=== PATIENT | male | born 1950 | race Caucasian/White ===

== ENCOUNTER 2022-11-03 17:20 | Inpatient (IN) | payer MEDICARE, OTHER ==
[2022-11-03 18:19] LABS: Basophils # (A) 0.1 k/uL (0-0.2); Basophils % (A) 0 %; Eosinophils # (A) 0.1 k/uL (0-0.7); Eosinophils % (A) 0 %; HCT 42.6 % (39.0-53.0); HGB 13.7 gm/dL (13.0-17.5); Lymphocytes # (A) 1.3 k/uL (1.0-4.8); Lymphocytes % (A) 6 %; MCH 29.7 pg (25.0-35.0); MCHC 32.1 g/dL (31.0-37.0); MCV 92.3 fL (80.0-100.0); Mean Platelet Volume 7.6; Monocytes # (A) 0.8 k/uL (0-1.0); Monocytes % (A) 4 %; Neutrophils # (A) 18.4 k/uL (1.3-7.7); Neutrophils % (A) 88 %; Platelet Count 434 k/uL (150-450); RBC 4.61 m/uL (4.30-5.90); RDW 12.9 % (11.5-15.5); WBC 20.9 k/uL (3.8-10.6)
[2022-11-03 18:30] LABS: Albumin 2.9 g/dL (3.5-5.0); Calcium 8.5 mg/dL (8.4-10.2); Magnesium 2.2 mg/dL (1.6-2.3); Potassium 4.3 mmol/L (3.5-5.1); Total Bilirubin 3.9 mg/dL (0.2-1.3); Total Protein 6.7 g/dL (6.3-8.2)
[2022-11-03 18:34] LABS: INR 1.2 (<1.2); Prothrombin Time 12.3 sec (9.0-12.0)
[2022-11-03] MEDS ORDERED: ACETAMINOPHEN TAB 500 MG TAB PO STA (18:49)
[2022-11-03] MEDS ORDERED: IBUPROFEN 600 MG TAB PO STA (19:21)
[2022-11-03] MEDS ORDERED: SODIUM CHLORIDE 0.9% 500 ML 500 ML IV ONE (19:22)
--- NOTE | 2022-11-03 19:41 | CT ---
EXAMINATION TYPE: CT chest angio for PE CT DLP: 286 mGycm, Automated exposure control for dose reduction was used. DATE OF EXAM: 11/03/2022 7:26 PM COMPARISON: None CLINICAL INDICATION:Male, 71 years old with history of elevated d-dimer; cough, elevated d-dimer TECHNIQUE/CONTRAST: CTA scan of the thorax is performed with IV Contrast, patient injected with 100 mL of Isovue 300, pul monary embolism protocol. MIP images are created and reviewed. FINDINGS: Pulmonary Artery: There is no evidence for a filling defect within the pulmonary vasculature to sugge st acute pulmonary embolism. The pulmonary artery is of normal size. Lungs/Pleura: Trace right pleural effusion. Patchy consolidation throughout the right upper and middl e lobes with regions of cavitation. Largest cavitation measures up to 3 cm. Mild centrilobular emphys ematous changes. Airway: Large airways are patent. Heart: Heart is within normal limits for size. No pericardial effusion. Vasculature: No evidence of aortic aneurysm. Mediastinum: Few prominent right hilar lymph nodes. Musculoskeletal: No acute osseous abnormalities Soft Tissues: Bilateral gynecomastia. Lower neck: No significant findings. Upper Abdomen: Please refer to dedicated CT abdomen pelvis of same day for findings. IMPRESSION: 1. No evidence of pulmonary embolism. 2. Patchy consolidation throughout the right upper and middle lobes with regions of cavitation likely representing pneumonia with small pulmonary abscesses. Continued follow-up is recommended. 3. Reactive right hilar lymphadenopathy likely secondary to #2. 4. Trace right pleural effusion. 5. Mild COPD changes.
--- NOTE | 2022-11-03 20:07 | CT ---
EXAMINATION TYPE: CT abdomen pelvis w con CT DLP: 970.8 mGycm, Automated exposure control for dose reduction was used. DATE OF EXAM: 11/03/2022 7:26 PM COMPARISON: None CLINICAL INDICATION:Male, 71 years old with history of elevated liver enzymes; weakness, nausea, vomi ting TECHNIQUE: Standard CT of the abdomen and pelvis following the administration of 100 cc of Isovue 3 00 IV contrast material. Coronal and sagittal reformats were performed. FINDINGS: LOWER CHEST: Please see dedicated CTA chest for findings ABDOMEN LIVER: A few subcentimeter hypoattenuating structures are demonstrated throughout the liver, which ar e too small to accurately characterize but statistically likely to represent simple hepatic cysts GALLBLADDER AND BILE DUCTS: Unremarkable. PANCREAS: Unremarkable. SPLEEN: Unremarkable. ADRENAL GLANDS: Unremarkable. KIDNEYS AND URETERS: No evidence of hydronephrosis or renal calculus. The kidneys enhance symmetrical ly. Contrast is demonstrated within both collecting systems on the delayed phase. PELVIS BLADDER: Unremarkable REPRODUCTIVE: Coarse calcifications of the prostate gland are identified. ABDOMEN & PELVIS STOMACH AND BOWEL: Small hiatal hernia, duodenum is unremarkable. The appendix is within normal limit s. No evidence of bowel obstruction. PERITONEUM: No evidence of pneumoperitoneum or free fluid. VASCULATURE: Infrarenal abdominal aortic fusiform ectasia measuring up to 2.9 cm. Moderate atheroscle rotic calcification of the aorta and its branches. MUSCULOSKELETAL: No acute osseous abnormalities. Mild multilevel degenerative disc disease. Prominent Schmorl's node involving the superior endplate of L2 vertebral body. LYMPH NODES: No gross evidence for lymphadenopathy. SOFT TISSUE/ABDOMINAL WALL: Unremarkable IMPRESSION: 1. No acute abdominal/pelvic process. 2. Infrarenal abdominal aortic ectasia measuring up to 2.9 cm.
--- NOTE | 2022-11-03 20:38 | ED ---
Chest Pain HPI - General Chief Complaint: Chest Pain Stated Complaint: Chest/back Pain Time Seen by Provider: 11/03/22 17:30 Source: patient Mode of arrival: wheelchair Limitations: physical limitation - History of Present Illness Initial Comments: 71-year-old male with past history of hypertension presents emergency department with fever, productive cough and shortness of breath. Daughter is at bedside and helps provide history. States that he has had symptoms for the past several weeks and is not getting any better. Denies any fevers however the patient does have one upon evaluation here. He denies hemoptysis. Admits to smoking. Reports to right-sided chest pain especially with inspiration. He denies cardiac history. No nausea or vomiting. No diarrhea. No other alleviating, precipitating or modifying factors - Related Data Home Medications Medication Instructions Recorded Confirmed amLODIPine [Norvasc] 5 mg PO BID 11/03/22 11/03/22 Allergies Allergy/AdvReac Type Severity Reaction Status Date / Time No Known Allergies Allergy Verified 11/04/22 10:41 Review of Systems ROS Statement: Those systems with pertinent positive or pertinent negative responses have been documented in the HPI. ROS Other: All systems not noted in ROS Statement are negative. Past Medical History Past Medical History: Hypertension History of Any Multi-Drug Resistant Organisms: None Reported Past Surgical History: No Surgical Hx Reported Past Psychological History: No Psychological Hx Reported Smoking Status: Current every day smoker Past Alcohol Use History: Rare Past Drug Use History: None Reported General Exam Limitations: physical limitation General appearance: alert, in no apparent distress Head exam: Present: atraumatic, normocephalic, normal inspection Eye exam: Present: normal appearance, PERRL, EOMI. Absent: scleral icterus, conjunctival injection, periorbital swelling ENT exam: Present: normal exam, mucous membranes moist Neck exam: Present: normal inspection. Absent: tenderness, meningismus, lymphadenopathy Respiratory exam: Present: rales, decreased breath sounds. Absent: respiratory distress, rhonchi, stridor Cardiovascular Exam: Present: normal rhythm, tachycardia, normal heart sounds. Absent: systolic murmur, diastolic murmur, rubs, gallop, clicks GI/Abdominal exam: Present: soft, normal bowel sounds. Absent: distended, tenderness, guarding, rebound, rigid Extremities exam: Present: normal inspection, full ROM, normal capillary refill. Absent: tenderness, pedal edema, joint swelling, calf tenderness Back exam: Present: normal inspection Neurological exam: Present: alert, oriented X3, CN II-XII intact Psychiatric exam: Present: normal affect, normal mood Skin exam: Present: warm, dry, intact, normal color. Absent: rash Course Vital Signs 11/03/22 11/03/22 11/03/22 17:26 18:18 18:37 Temperature 98.5 F 100.1 F H Pulse Rate 111 H 105 H Pulse Rate [ Pulse Oximetery ] Respiratory 22 18 20 Rate Blood Pressure 110/70 125/86 Blood Pressure [Right Arm] O2 Sat by Pulse 95 100 Oximetry 11/03/22 11/03/22 11/03/22 19:42 20:48 21:23 Temperature 100.2 F H 98.7 F 99 F Pulse Rate 95 92 Pulse Rate [ Pulse Oximetery ] Respiratory 18 18 Rate Blood Pressure 101/59 Blood Pressure [Right Arm] O2 Sat by Pulse 96 Oximetry 11/04/22 11/04/22 01:00 02:10 Temperature 99 F 98.8 F Pulse Rate 92 Pulse Rate [ 98 Pulse Oximetery ] Respiratory 17 20 Rate Blood Pressure 108/77 Blood Pressure 106/65 [Right Arm] O2 Sat by Pulse 95 96 Oximetry Chest Pain MDM - MDM Was pt. sent in by a medical professional or institution ([facility], [facility], urgent care, hospital, or senior care...) When possible be specific @ -No Did you speak to anyone other than the patient for history (EMS, parent, family, police, friend...)? What history was obtained from this source @ -I spoke with the patient's daughter Did you review nursing and triage notes (agree or disagree)? Why? @ -I reviewed and agree with nursing and triage notes Were old charts reviewed (outside hosp., previous admission, EMS record, old EKG, old radiological studies, urgent care reports/EKG's, senior care records)? Report findings @ -No old charts were reviewed Differential Diagnosis (chest pain, altered mental status, abdominal pain women, abdominal pain men, vaginal bleeding, weakness, fever, dyspnea, syncope, headache, dizziness, GI bleed, back pain, seizure, CVA, palpatations, mental health, musculoskeletal)? @ -Differential Fever: Pneumonia, viral URI, endocarditis, myocarditis, pericarditis, otitis, sinusitis, peritonsillar Abscess, retropharyngeal Abscess, epiglottitis, peritonitis, appendicitis, Bryanna cystitis, diverticulitis, hepatitis, colitis, UTI, PID, TOA, pyelonephritis, prostatitis, epididymitis, meningitis, encephalitis, pulmonary embolism, CVA, thyroid storm, pancreatitis, adrenal crisis, cavernous sinus thrombosis, this is not meant to be an all-inclusive list. EKG interpreted by me (3pts min.). @ -EKG interpreted by me demonstrates sinus tachycardia with a rate of 118. SC interval 139. QRS 122. QTC of 379. No acute ST segment elevations or depressions X-rays interpreted by me (1pt min.). @ -None done CT interpreted by me (1pt min.). @ -CT is interpreted by me and demonstrates a right lung abscess U/S interpreted by me (1pt. min.). @ -None done What testing was considered but not performed or refused? (CT, X-rays, U/S, labs)? Why? @ -None What meds were considered but not given or refused? Why? @ -None Did you discuss the management of the patient with other professionals (professionals i.e. DrRadha, PA, GM, lab, RT, psych nurse, social human services assistants, proof sorter, teacher, security officer, home health care case manager)? Give summary @ -Spoke with Dr. Prajapati who will admit the patient Was smoking cessation discussed for >3mins.? @ -Yes Was critical care preformed (if so, how long)? @ -No Were there social determinants of health that impacted care today? How? (Homelessness, low income, unemployed, alcoholism, drug addiction, transportation, low edu. Level, literacy, decrease access to med. care, half-way, rehab)? @ -No Was there de-escalation of care discussed even if they declined (Discuss DNR or withdrawal of care, Hospice)? DNR status @ -No What co-morbidities impacted this encounter? (DM, HTN, Smoking, COPD, CAD, Cancer, CVA, ARF, Chemo, Hep., AIDS, mental health diagnosis, sleep apnea, morbid obesity)? @ -Tobacco abuse Was patient admitted / discharged? Hospital course, mention meds given and route, prescriptions, significant lab abnormalities, going to OR and other pertinent info. @ -@ -Upon arrival patient was placed into room 2. Her history and physical symptoms performed. I did order Tylenol for fever control. Laboratory studies are conducted and reviewed. I blood cell count is 20.9. D-dimer 1.01. Liver enzymes are elevated and therefore I did discontinue the Tylenol and gave the patient Motrin. CT of the patient's chest is performed which demonstrates right-sided pneumonia with abscess formation. Blood cultures obtained and the patient initiated on antibiotics. Recommended admission for which the patient was agreeable. Spoke with Dr. Prajapati who agreed to admit the patient Undiagnosed new problem with uncertain prognosis? @ -Yes Drug Therapy requiring intensive monitoring for toxicity (Heparin, Nitro, Insulin, Cardizem)? @ -No Were any procedures done? @ -No Diagnosis/symptom? @ -Acute pyrexia, acute cough, right pulmonary abscess with pneumonia, acute leukocytosis Acute, or Chronic, or Acute on Chronic? @ -Acute Uncomplicated (without systemic symptoms) or Complicated (systemic symptoms)? @ -Complicated Side effects of treatment? @ -No Exacerbation, Progression, or Severe Exacerbation? @ -No Poses a threat to life or bodily function? How? (Chest pain, [place], [place], pneumonia, PE, COPD, DKA, ARF, appy, cholecystitis, CVA, Diverticulitis, Homicidal, Suicidal, threat to staff... and all critical care pts) @ -No Disposition Clinical Impression: Cough, Lung abscess, CAP (community acquired pneumonia), Fever, Leukocytosis Disposition: ADMITTED IP TO THIS [facility] Condition: Serious Is patient prescribed a controlled substance at d/c from ED?: No Time of Disposition: 20:48 Decision to Admit Reason: Admit from EC Decision Date: 11/03/22 Decision Time: 20:48
[2022-11-03] MEDS ORDERED: NALOXONE 0.4 MG/ML 1 ML VIAL IV PRN (20:48)
[2022-11-03] MEDS ORDERED: PIPERACILLIN-TAZOBACTAM 3.375 GM in SODIUM CHLORIDE 0.9% 100 ML IVPB STA (20:52)
[2022-11-03] MEDS ORDERED: PNEUMONIA PROTOCOL UTILIZED 1 EACH MISC PO PRN (20:52)
[2022-11-03] MEDS: SODIUM CHLORIDE 0.9% 1,000 ML IV SCH (21:15)
[2022-11-04] MEDS ORDERED: IPRATROPIUM-ALBUTEROL 3 ML NEB INHALATION PRN ×2 (01:25→05:22)
[2022-11-04] MEDS: CLINDAMYCIN 600 MG/50 ML-D5W 600 MG in DEXTROSE/WATER 1 50ML.BAG IVPB SCH ×3 (01:40→16:15)
[2022-11-04] MEDS: SODIUM CHLORIDE 0.9% 1,000 ML IV SCH ×3 (02:10→19:52)
[2022-11-04] MEDS: PIPERACILLIN-TAZOBACTAM 3.375 GM in SODIUM CHLORIDE 0.9% 100 ML IVPB SCH ×3 (04:43→19:51)
--- NOTE | 2022-11-04 05:42 | P.CNPUL ---
History of Present Illness Consult date: 11/04/22 Requesting physician: Latrice Santana Reason for consult: pneumonia Chief complaint: Shortness of breath and cough for about 1 month History of present illness: I am seeing this patient in new consultation today 11/04/2022 for right upper and middle lobe cavitating pneumonia. Patient is a 71-year-old white male with known past medical history of hypertension. He is also a 2 pack per day smoker. On my interview, the patient states that his daughter normally handles all this, and to ask her. He is unsure of his own medical history, but denies any history of lung disease. The patient has been reportedly experiencing shortness of breath with a productive cough and yellow sputum production for approximately one month. He does have associated right-sided chest pain especially with inspiration and cough. He has been more fatigued lately. He denies hemoptysis or recent unintentional weight loss. He is currently sitting up in bed, on room air, in no acute distress. Chest CTA on arrival shows no evidence of pulmonary embolism. It does show patchy consolidation throughout the right upper and middle lobes with regions of cavitation likely representing pneumonia with small pulmonary abscesses. There was also reactive right hilar lymph, a trace right pleural effusion, and mild COPD-like changes. CT of the abdomen pelvis showed no acute abdominal process, there was an infrarenal abdominal aortic aneurysm measuring up to 2.9 cm. CBC on arrival shows leukocytosis with a WBC count of 21, hemoglobin 13.7, hematocrit 42.6, platelets 434. CMP shows a sodium 133, potassium 4.3, chloride 97, serum CO2 23, BUN 21, creatinine 1.02, glucose 124. LFTs were elevated including an AST of 256, ALT 139, ALP of 207. Troponin negative 1. NT proBNP level. Negative for influenza, RSV, COVID-19. Patient is being empirically covered on a combination of Zosyn and clindamycin. He is febrile with a T-max of 100.2F. Vital signs are stable. Review of Systems REVIEW OF SYSTEMS: CONSTITUTIONAL: Denies any recent significant weight loss or weight gain. EYES: Denies change in vision. EARS, NOSE, MOUTH, THROAT: Denies headaches, denies sore throat. CARDIOVASCULAR: Denies radiating chest pain, palpitations or syncopal episodes. RESPIRATORY: See HPI GASTROINTESTINAL: Denies change in appetite, abdominal pain, nausea and vomiting, or diarrhea GENITOURINARY: Denies hematuria, denies infections. MUSKULOSKELETAL: Denies pain, denies swelling. INTEGUMENTARY: Denies rash, denies eczema. NEUROLOGICAL: Denies recent memory loss, no recent seizure activity. PSYCHIATRIC: Denies anxiety, denies depression. HEMATOLOGIC/LYMPHATIC: Denies anemia, denies enlarged lymph node Past Medical History Past Medical History: Hypertension History of Any Multi-Drug Resistant Organisms: None Reported Past Surgical History: No Surgical Hx Reported Past Anesthesia/Blood Transfusion Reactions: No Reported Reaction Past Psychological History: No Psychological Hx Reported Smoking Status: Current every day smoker Past Alcohol Use History: Rare Past Drug Use History: None Reported Medications and Allergies Home Medications Medication Instructions Recorded Confirmed Type amLODIPine [Norvasc] 5 mg PO BID 11/03/22 11/03/22 History Allergies Allergy/AdvReac Type Severity Reaction Status Date / Time No Known Allergies Allergy Verified 11/04/22 10:41 Physical Exam Vitals: Vital Signs Temp Pulse Pulse Resp BP BP Pulse Ox 11/04/22 02:10 98.8 F 98 20 106/65 96 11/04/22 01:00 99 F 92 17 108/77 95 11/03/22 21:23 99 F 92 18 101/59 96 11/03/22 20:48 98.7 F 11/03/22 19:42 100.2 F H 95 18 11/03/22 18:37 100.1 F H 105 H 20 125/86 100 11/03/22 18:18 18 11/03/22 17:26 98.5 F 111 H 22 110/70 95 Intake and Output 11/03/22 11/03/22 11/04/22 14:59 22:59 06:59 Other: Voiding Method Toilet Urinal Weight 77.111 kg 77.111 kg GENERAL EXAM: Alert, 71-year-old white male , comfortable in no apparent distress. HEAD: Normocephalic and atraumatic EYES: Normal reaction of pupils, equal size. NOSE: Clear with pink turbinates. THROAT: No erythema or exudates. NECK: No masses, no JVD. CHEST: No chest wall deformity. LUNGS: Diminished right upper lobe lung sounds. No crackles, wheeze, rhonchi or dullness. On room air. No conversational dyspnea or accessory muscle use.. CVS: S1 and S2 normal with no audible murmur, regular rhythm. No extra heart sounds ABDOMEN: No hepatosplenomegaly, active bowel sounds, no guarding or rigidity. SPINE: No scoliosis or deformity SKIN: No rashes CENTRAL NERVOUS SYSTEM: No focal deficits, tone is normal in all 4 extremities. EXTREMITIES: There is no peripheral edema, clubbing, or cyanosis. Peripheral pulses are intact. Results - Laboratory Findings CBC and BMP: 11/04/22 06:02 11/04/22 06:02 PT/INR, D-dimer PT 12.3 sec (9.0-12.0) H 11/03/22 17:35 INR 1.2 (<1.2) H 11/03/22 17:35 D-Dimer 1.01 mg/L FEU (<0.60) H 11/03/22 17:35 Abnormal lab findings: Abnormal Labs 11/03/22 11/03/22 11/03/22 17:35 18:02 18:08 WBC 20.9 H Neutrophils # 18.4 H PT 12.3 H INR 1.2 H D-Dimer 1.01 H Sodium 133 L Chloride 97 L BUN 21 H Glucose 124 H Total Bilirubin 3.9 H AST 256 H ALT 139 H Alkaline Phosphatase 207 H Albumin 2.9 L - Diagnostic Findings CT scan - chest: image reviewed Assessment and Plan Assessment: Right upper lobe community acquired cavitating pneumonia. Chest CT shows patchy consolidation throughout the right upper and middle lobes with regions of cavitation likely representing pneumonia with small pulmonary abscesses. Leukocytosis Suspected COPD, mild COPD-like changes were seen on chest CTA Infrarenal abdominal aortic aneurysm measuring up to 2.9 cm Hypertension Elevated LFTs, currently under evaluation Chronic nicotine dependence, current 2 pack per day smoker Plan: Patient's medications, labs, chest CTA were reviewed Continue empiric antibiotics in the form of Zosyn and clindamycin Patient may need diagnostic bronchoscopy to isolate organism blood cultures are pending sputum cultures ordered Add bronchodilators obtain ultrasound of liver Nicotine replacement offered Smoking cessation education performed We will continue to follow I have personally seen and examined the patient, performed the documentation and the assessment and plan as written. Number of minutes spent on the visit:20 Joint evaluation that was done along with the nurse practitioner. The patient has a very dense consolidation with cavitation in the right upper lobe. This is a new onset finding as the patient's previous CAT scan of the chest that was done approximately 4 months ago showed no evidence of any abnormalities in the right upper lobe area. I highly doubt this is malignancy. There is a extensive cavitating right upper lobe pneumonia. We'll continue the Zosyn and and clindamycin and and also Zyvox for any potential staphylococcal infection. We'll consult infectious disease. We'll obtain a pro-calcitonin level. May need a bronchoscopy for microbial cultures and analysis. He was not interested in the procedure. We'll continue with antibiotic coverage for now. Time with Patient: Greater than 30
[2022-11-04 06:16] LABS: Basophils # (A) 0.1 k/uL (0-0.2); Basophils % (A) 0 %; Eosinophils # (A) 0.2 k/uL (0-0.7); Eosinophils % (A) 1 %; HCT 37.8 % (39.0-53.0); Hypochromasia Slight; Lymphocytes % (A) 4 %; MCH 29.9 pg (25.0-35.0); MCHC 31.7 g/dL (31.0-37.0); MCV 94.1 fL (80.0-100.0); Mean Platelet Volume 7.3; Monocytes # (A) 0.8 k/uL (0-1.0); Monocytes % (A) 3 %; Neutrophils # (A) 21.3 k/uL (1.3-7.7); Neutrophils % (A) 91 %; Platelet Count 456 k/uL (150-450); RBC 4.02 m/uL (4.30-5.90); RDW 13.1 % (11.5-15.5); WBC 23.5 k/uL (3.8-10.6)
[2022-11-04 06:45] LABS: African American GFR (CKD) >90 (>60 ml/min/1.73 sqM); Anion Gap 11 mmol/L; Blood Urea Nitrogen 15 mg/dL (9-20); Calcium 7.8 mg/dL (8.4-10.2); Carbon Dioxide 21 mmol/L (22-30); Chloride 101 mmol/L (98-107); Glucose 91 mg/dL (74-99); Non-African American GFR(CKD) >90 (>60 ml/min/1.73 sqM); Sodium 133 mmol/L (137-145)
--- NOTE | 2022-11-04 07:14 | XR ---
EXAMINATION TYPE: XR chest 1V DATE OF EXAM: 11/04/2022 6:46 AM COMPARISON: CT 11/03/2022 TECHNIQUE: XR chest 1V Frontal view of the chest. CLINICAL INDICATION:Male, 71 years old with history of pneumonia; FINDINGS: Lungs/Pleura: Trace right pleural effusion. Airspace opacities throughout the right upper and middle lobes with regions of cavitation are appreciated on CT. Largest cavitation measures up to 3 cm. Mild centrilobular emphysematous changes. Pulmonary vascularity: Unremarkable. Heart/mediastinum: Cardiomediastinal silhouette is unremarkable. Musculoskeletal: No acute osseous pathology. IMPRESSION: Similar multifocal airspace opacities better appreciated on CT.
[2022-11-04] MEDS: NICOTINE 21MG/24HR PATCH TRANSDERM SCH (08:12)
--- NOTE | 2022-11-04 08:16 | US ---
EXAMINATION TYPE: US liver DATE OF EXAM: 11/04/2022 COMPARISON: CT 11/03/2022 CLINICAL INDICATION: Male, 71 years old with history of elevated LFTs; elevated labs, no pain per pat ient TECHNIQUE: Multiple sonographic images of the right upper quadrant are obtained. FINDINGS: EXAM MEASUREMENTS: Liver Length: 16.3 cm Gallbladder Wall: 0.2 cm CBD: 0.5 cm Right Kidney: 9.9 x 4.8 x 5.4 cm Pancreas: not seen due to bowel gas Liver: left lateral lobe anechoic cluster, probable cyst = 1.3 x 1.4 x 0.6cm Gallbladder: multiple echogenic areas along anterior wall with comet tail artifact, may represent ad enomyomatosis Evidence for sonographic Rodriguez's sign: no CBD: wnl Right Kidney: wnl IMPRESSION: 1. Gallbladder adenomyomatosis. 2. Left simple appearing hepatic cyst. 3. No evidence for acute process.
[2022-11-04] MEDS: IBUPROFEN 400 MG TAB PO PRN ×2 (08:42→19:51)
[2022-11-04] MEDS: IPRATROPIUM-ALBUTEROL 3 ML NEB INHALATION SCH ×4 (09:00→19:25)
[2022-11-04] MEDS ORDERED: SODIUM CHLORIDE 0.9% 500 ML 500 ML IV ONE (14:12)
[2022-11-04] MEDS ORDERED: LORazepam 1 MG TAB PO PRN ×3 (14:16)
--- NOTE | 2022-11-04 18:40 | P.HPIM ---
History of Present Illness H&P Date: 11/04/22 Chief Complaint: Cough fever debility Mr. Grace is a relatively new patient to my office have only seen him once this year he presented with shortness of breath cough for 1 month with ongoing fatigue and debility, he is a 16-year-old male past medical history of hypertension. 2 pack-a-day smoker. A daily beer drinker although he states he hasn't drank any alcohol for the last month and his smoking has diminished markedly because he cannot really. Patient experiencing started experiencing shortness of breath and cough approximately earlier in the month and started becoming progressively fatigued and more short of breath. Denies hemoptysis. Denies any recent weight loss is not in any acute distress the CAT scan shows [place] patchy consolidation throughout the right upper and middle lobes CT of the abdomen and pelvis showed no acute process there is a infrarenal abdominal aortic aneurysm measuring approximately 2.[address] A showed no evidence of PE patient demonstrated leukocytosis 21,000 hemoglobin is 13.7 crit grade 2.6 lites BUN/creatinine were fairly normal negative peripheral ENT negative influenza negative [place] and currently being covered empirically with Zosyn and Clinda max of 100.2 Review of Systems Constitutional: Reports anorexia, Reports fatigue, Reports fever, Reports weakness Ears, nose, mouth and throat: Reports as per HPI Cardiovascular: Reports shortness of breath Respiratory: Reports congestion, Reports cough, Reports cough with sputum, Reports excessive sputum Gastrointestinal: Reports as per HPI Genitourinary: Reports as per HPI Musculoskeletal: Reports as per HPI Integumentary: Reports as per HPI Neurological: Reports as per HPI Psychiatric: Reports as per HPI Past Medical History Past Medical History: Hypertension History of Any Multi-Drug Resistant Organisms: None Reported Past Surgical History: No Surgical Hx Reported Past Anesthesia/Blood Transfusion Reactions: No Reported Reaction Past Psychological History: No Psychological Hx Reported Smoking Status: Current every day smoker Past Alcohol Use History: Rare Past Drug Use History: None Reported Medications and Allergies Home Medications Medication Instructions Recorded Confirmed Type amLODIPine [Norvasc] 5 mg PO BID 11/03/22 11/03/22 History Allergies Allergy/AdvReac Type Severity Reaction Status Date / Time No Known Allergies Allergy Verified 11/04/22 10:41 Physical Exam Osteopathic Statement: *. No significant issues noted on an osteopathic structural exam other than those noted in the History and Physical/Consult. Vitals: Vital Signs Temp Pulse Pulse Resp BP BP Pulse Ox 11/04/22 15:00 97.4 F L 81 20 86/48 95 11/04/22 12:06 92 11/04/22 11:59 96 11/04/22 09:11 100 11/04/22 09:05 99 11/04/22 07:00 98.4 F 97 22 107/66 95 11/04/22 02:10 98.8 F 98 20 106/65 96 11/04/22 01:00 99 F 92 17 108/77 95 11/03/22 21:23 99 F 92 18 101/59 96 11/03/22 20:48 98.7 F 11/03/22 19:42 100.2 F H 95 18 11/03/22 18:37 100.1 F H 105 H 20 125/86 100 Intake and Output 11/04/22 11/04/22 11/04/22 06:59 14:59 22:59 Intake Total 118 Output Total 400 Balance -282 Intake: Oral 118 Output: Urine 400 Other: Voiding Method Toilet Toilet Urinal Urinal # Voids 1 Weight 77.111 kg General: [Patient awake, alert and oriented times 3. Patient in no acute distress.] Mildly cachectic HEENT: [PERRL. EOMI. No pharyngeal erythema or exudate.] Neck: [No adenopathy.] Cardiac: [Heart regular in rate and rhythm. No S3. No S4. No clicks, rubs. No murmur.] Lungs: Diminished breath sounds bilaterally mild consolidation right upper lobe Abdomen: [No mass. No organomegaly. Bowel sounds presnt and normoactive in all 4 quadrants.] Extremes: [No edema no cyanosis no claudication normal pulses] : [] Musculoskeletal: [No joint erythema, edema or tenderness.] Skin: [No rash.] Neurologic: [No lateralizing deficits. CN II - XII grossly intact.] Lymphatic: [No adenopathy.] Results CBC & Chem 7: 11/04/22 06:02 11/04/22 06:02 Labs: Abnormal Lab Results - Last 24 Hours (Table) 11/03/22 11/03/22 11/04/22 Range/Units 17:35 18:08 06:02 WBC 23.5 H (3.8-10.6) k/uL RBC 4.02 L (4.30-5.90) m/uL Hgb 12.0 L (13.0-17.5) gm/dL Hct 37.8 L (39.0-53.0) % Plt Count 456 H (150-450) k/uL Neutrophils # 21.3 H (1.3-7.7) k/uL PT 12.3 H (9.0-12.0) sec INR 1.2 H (<1.2) D-Dimer 1.01 H (<0.60) mg/L FEU Sodium 133 L (137-145) mmol/L Chloride 97 L (98-107) mmol/L Carbon Dioxide (22-30) mmol/L BUN 21 H (9-20) mg/dL Glucose 124 H (74-99) mg/dL Calcium (8.4-10.2) mg/dL Total Bilirubin 3.9 H (0.2-1.3) mg/dL AST 256 H (17-59) U/L ALT 139 H (4-49) U/L Alkaline Phosphatase 207 H (38-126) U/L Albumin 2.9 L (3.5-5.0) g/dL 11/04/22 Range/Units 06:02 WBC (3.8-10.6) k/uL RBC (4.30-5.90) m/uL Hgb (13.0-17.5) gm/dL Hct (39.0-53.0) % Plt Count (150-450) k/uL Neutrophils # (1.3-7.7) k/uL PT (9.0-12.0) sec INR (<1.2) D-Dimer (<0.60) mg/L FEU Sodium 133 L (137-145) mmol/L Chloride (98-107) mmol/L Carbon Dioxide 21 L (22-30) mmol/L BUN (9-20) mg/dL Glucose (74-99) mg/dL Calcium 7.8 L (8.4-10.2) mg/dL Total Bilirubin (0.2-1.3) mg/dL AST (17-59) U/L ALT (4-49) U/L Alkaline Phosphatase (38-126) U/L Albumin (3.5-5.0) g/dL Microbiology - Last 24 Hours (Table) 11/04/22 09:44 Sputum Culture - Preliminary Sputum 11/04/22 09:44 Legionella Culture - Preliminary Sputum Thrombosis Risk Factor Assmnt - DVT/VTE Prophylaxis DVT/VTE Prophylaxis: Pharmacologic Prophylaxis ordered - Choose All That Apply Any of the Below Risk Factors Present?: Yes Each Factor Represents 1 point: Obesity (BMI >25) Other Risk Factors: Yes Each Risk Factor Represents 2 Points: Age 61-74 years Other congenital or acquired thrombophilia - If yes, enter type in comment: No Thrombosis Risk Factor Assessment Total Risk Factor Score: 3 Thrombosis Risk Factor Assessment Level: Moderate Risk Assessment and Plan (1) CAP (community acquired pneumonia) Current Visit: Yes Status: Acute Code(s): J18.9 - PNEUMONIA, UNSPECIFIED ORGANISM SNOMED Code(s): 830062982 (2) Cough Current Visit: Yes Status: Acute Code(s): R05.9 - COUGH, UNSPECIFIED SNOMED Code(s): 08494598 (3) Fever Current Visit: Yes Status: Acute Code(s): R50.9 - FEVER, UNSPECIFIED SNOMED Code(s): 444785906 (4) Leukocytosis Current Visit: Yes Status: Acute Code(s): D72.829 - ELEVATED WHITE BLOOD CELL COUNT, UNSPECIFIED SNOMED Code(s): 978056449 (5) Lung abscess Current Visit: Yes Status: Acute Code(s): J85.2 - ABSCESS OF LUNG WITHOUT PNEUMONIA SNOMED Code(s): 90485494 Plan: Right upper lobe pneumonia possible abscess IV antibiotics Pulmonary consultation for Waiting on sputum cultures and blood cultures Time with Patient: Greater than 30
[2022-11-05] MEDS: CLINDAMYCIN 600 MG/50 ML-D5W 600 MG in DEXTROSE/WATER 1 50ML.BAG IVPB SCH ×4 (01:00→22:29)
[2022-11-05] MEDS: PIPERACILLIN-TAZOBACTAM 3.375 GM in SODIUM CHLORIDE 0.9% 100 ML IVPB SCH ×3 (04:43→20:13)
[2022-11-05] MEDS: SODIUM CHLORIDE 0.9% 1,000 ML IV SCH ×3 (04:47→20:22)
[2022-11-05] MEDS: NICOTINE 21MG/24HR PATCH TRANSDERM SCH (08:02)
[2022-11-05] MEDS: THIAMINE 100 MG TAB PO SCH (08:02)
[2022-11-05] MEDS ORDERED: VANCOMYCIN IV PER PHARMACY 1 EACH MISC MISCELLANE PRN (08:20)
[2022-11-05] MEDS ORDERED: VANCOMYCIN 1,500 MG in SODIUM CHLORIDE 0.9% 500 ML 500 ML IVPB ONE (09:00)
[2022-11-05] MEDS: IPRATROPIUM-ALBUTEROL 3 ML NEB INHALATION SCH ×4 (09:06→20:29)
[2022-11-05] MEDS: IBUPROFEN 400 MG TAB PO PRN ×2 (09:35→20:14)
--- NOTE | 2022-11-05 13:26 | CDI ---
Documentation Clarification Form Date: 11/05/2022 12:52:51 PM From: Rosemary Pro RN, CCDS Admit Date: 11/03/2022 08:48:00 PM Patient Name: Bryan Grace Visit Number: [id number] Discharge Date: ATTENTION: The Clinical Documentation Specialists (CDI) and [facility] Coding Staff appreciate your assistance in clarifying documentation. Please respond to the clarification below the line at the bottom and electronically sign. The CDI & [facility] Coding staff will review the response and follow-up if needed. Please note: Queries are made part of the Legal Health Record. If you have any questions, please contact the author of this message via ITS. Dr. Nadeem Prajapati The patient has fever, cough and shortness of breath. Based on this information and the findings below, is there an additional diagnosis that is clinically appropriate for this patient? 11/04 Pulmonary: Chest CT shows patchy consolidation through the right upper and middle lobes with regions of cavitation likely representing pneumonia with small pulmonary abscesses. History/Risk Factors: Hypertension, Current every day smoker Clinical Indicators: 71-year-old present to ED with fever, productive cough and shortness of breath for the past several weeks. Reports to right-sided chest pain especially with inspiration. 11/03 WBC 20.9, Neutrophils 18.4 Sodium 133, BUN 21 Cr 1.02 Lactic acid 1.4, Total Bilirubin 3.9, AST 256, ALT 1.39 Alkaline Phosphatase 207 Covid Not detected. 11/03 Blood cultures: Blood culture Pending 11/03 (18:37) Vital signs: 125/86 105 20 100.1 100 % RA 11/04 VS107/66 97 22 98.4 95 % RA 11/04 Labs: WBC 23.5 Neutrophils 21.3 Treatment: Cardiac/Telemetry monitoring Clindamycin Phosphate 600 MG IVPB Q 6 HRS 11/04-11/05 Zosyn 3.375 GM IVPB Q 8 HRS 11/03-11/05 Vancomycin 1,500 MG IVPB Q 12 HRS (PTH) 11/05 .9 NS 500 ML Bolus 11/04 Albuterol Duoneb Inhalation QID Is there an additional diagnosis that is clinically appropriate for this patient? [ x] Sepsis, present on admission [ ] Sepsis ruled out [ ] Other, please specify [ ] Unable to determine SIRS Criteria: 2 or more of the following may indicate SIRS Temperature < 96.8F (36C) or > 101.0F (38.3C) Heart Rate > 90 bpm Respiratory Rate > 20 breaths/min or PaCO2 < 32 mmHg White Blood Cell Count > 12,000 or < 4,000 cells/mm3 or > 10% bands (Template Last Reviewed: June 2022) MTDD
--- NOTE | 2022-11-05 14:48 | P.PN ---
Subjective Progress Note Date: 11/05/22 I am seeing this patient in new consultation today 11/04/2022 for right upper and middle lobe cavitating pneumonia. Patient is a 71-year-old white male with known past medical history of hypertension. He is also a 2 pack per day smoker. On my interview, the patient states that his daughter normally handles all this, and to ask her. He is unsure of his own medical history, but denies any history of lung disease. The patient has been reportedly experiencing shortness of breath with a productive cough and yellow sputum production for approximately one month. He does have associated right-sided chest pain especially with inspiration and cough. He has been more fatigued lately. He denies hemoptysis or recent unintentional weight loss. He is currently sitting up in bed, on room air, in no acute distress. Chest CTA on arrival shows no evidence of pulmonary embolism. It does show patchy consolidation throughout the right upper and middle lobes with regions of cavitation likely representing pneumonia with small pulmonary abscesses. There was also reactive right hilar lymph, a trace right pleural effusion, and mild COPD-like changes. CT of the abdomen pelvis showed no acute abdominal process, there was an infrarenal abdominal aortic aneurysm measuring up to 2.9 cm. CBC on arrival shows leukocytosis with a WBC count of 21, hemoglobin 13.7, hematocrit 42.6, platelets 434. CMP shows a sodium 133, potassium 4.3, chloride 97, serum CO2 23, BUN 21, creatinine 1.02, glucose 124. LFTs were elevated including an AST of 256, ALT 139, ALP of 207. Troponin negative 1. NT proBNP level. Negative for influenza, RSV, COVID-19. Patient is being empirically covered on a combination of Zosyn and clindamycin. He is febrile with a T-max of 100.2F. Vital signs are stable. On today's evaluation of 62,023, the patient is resting comfortably in bed and the patient is covered with triple antibiotics for an extensive right upper lobe pneumonia with cavitation and development of micro-abscesses. The white cell count is still elevated. The patient's pro-calcitonin level is still pending for now. Meanwhile, the most recent white cell count from yesterday was 23.5 and a hemoglobin is at 12. No chest pain. No hemoptysis. Legionella urine antigen has been negative. The patient has no other complaints otherwise for now. He is covered with a combination of clindamycin, vancomycin and Zosyn. Objective - Vital Signs Vital signs: Vital Signs Temp 98.3 F 11/05/22 13:40 Pulse 76 11/05/22 14:00 Resp 17 11/05/22 14:00 BP 106/69 11/05/22 13:40 Pulse Ox 92 L 11/05/22 13:40 FiO2 Intake & Output 11/04/22 11/05/22 11/05/22 18:59 06:59 18:59 Intake Total 118 118 Output Total 400 800 Balance -282 -800 118 Intake: Oral 118 118 Output: Urine 400 800 Other: Voiding Method Toilet Toilet Toilet Urinal Urinal Urinal # Voids 3 - Exam GENERAL EXAM: Alert, 71-year-old white male , comfortable in no apparent distress. HEAD: Normocephalic and atraumatic EYES: Normal reaction of pupils, equal size. NOSE: Clear with pink turbinates. THROAT: No erythema or exudates. NECK: No masses, no JVD. CHEST: No chest wall deformity. LUNGS: Diminished right upper lobe lung sounds. No crackles, wheeze, rhonchi or dullness. On room air. No conversational dyspnea or accessory muscle use.. CVS: S1 and S2 normal with no audible murmur, regular rhythm. No extra heart sounds ABDOMEN: No hepatosplenomegaly, active bowel sounds, no guarding or rigidity. SPINE: No scoliosis or deformity SKIN: No rashes CENTRAL NERVOUS SYSTEM: No focal deficits, tone is normal in all 4 extremities. EXTREMITIES: There is no peripheral edema, clubbing, or cyanosis. Peripheral pulses are intact. - Labs CBC & Chem 7: 11/04/22 06:02 11/04/22 06:02 Labs: Microbiology - Last 24 Hours (Table) 11/03/22 20:55 Blood Culture - Preliminary Blood 11/03/22 21:12 Blood Culture - Preliminary Blood 11/04/22 09:44 Gram Stain - Preliminary Sputum Sputum Culture - Preliminary 11/04/22 09:44 Legionella Culture - Preliminary Sputum Assessment and Plan Assessment: Right upper lobe community acquired cavitating pneumonia. Chest CT shows patchy consolidation throughout the right upper and middle lobes with regions of cavitation likely representing pneumonia with small pulmonary abscesses. Leukocytosis Suspected COPD, mild COPD-like changes were seen on chest CTA Infrarenal abdominal aortic aneurysm measuring up to 2.9 cm Hypertension Elevated LFTs, currently under evaluation Chronic nicotine dependence, current 2 pack per day smoker Plan: Continue broad-spectrum antibiotic coverage Continue Zosyn, clindamycin and vancomycin Awaiting pro-calcitonin level Follow-up white cell count Follow-up chest x-ray in the morning Monitor LFTs Ultrasound the liver was noted and there is no biliary obstruction obtain ultrasound of liver Nicotine replacement offered Smoking cessation education performed We will continue to follow
--- NOTE | 2022-11-05 17:29 | P.PN ---
Subjective Progress Note Date: 11/05/22 Principal diagnosis: Right upper lobe pneumonia Patient is awake, resting comfortably, vital signs are stable patient is afebrile blood pressure is 106/69, Objective - Vital Signs Vital signs: Vital Signs Temp 98.3 F 11/05/22 13:40 Pulse 84 11/05/22 16:55 Resp 17 11/05/22 14:00 BP 106/69 11/05/22 13:40 Pulse Ox 92 L 11/05/22 13:40 FiO2 Intake & Output 11/04/22 11/05/22 11/05/22 18:59 06:59 18:59 Intake Total 118 118 Output Total 400 800 200 Balance -282 -800 -82 Intake: Oral 118 118 Output: Urine 400 800 200 Other: Voiding Method Toilet Toilet Toilet Urinal Urinal Urinal # Voids 3 - Exam General: [Patient awake, alert and oriented times 3. Patient in no acute distress.] HEENT: [PERRL. EOMI. No pharyngeal erythema or exudate.] Neck: [No adenopathy.] Cardiac: [Heart regular in rate and rhythm. No S3. No S4. No clicks, rubs. No murmur.] Lungs: Diminished breath sounds bilaterally, mild right-sided consolidation Abdomen: [No mass. No organomegaly. Bowel sounds presnt and normoactive in all 4 quadrants.] Extremes: [No edema no cyanosis no claudication normal pulses] : Normal male genitalia Musculoskeletal: [No joint erythema, edema or tenderness.] Skin: [No rash.] Neurologic: [No lateralizing deficits. CN II - XII grossly intact.] Lymphatic: [No adenopathy.] - Labs CBC & Chem 7: 11/04/22 06:02 11/04/22 06:02 Labs: Abnormal Lab Results - Last 24 Hours (Table) 11/05/22 Range/Units 08:49 Procalcitonin 0.24 H (0.02-0.09) ng/mL Microbiology - Last 24 Hours (Table) 11/03/22 20:55 Blood Culture - Preliminary Blood 11/03/22 21:12 Blood Culture - Preliminary Blood 11/04/22 09:44 Gram Stain - Preliminary Sputum Sputum Culture - Preliminary 11/04/22 09:44 Legionella Culture - Preliminary Sputum Assessment and Plan (1) CAP (community acquired pneumonia) Current Visit: Yes Status: Acute Code(s): J18.9 - PNEUMONIA, UNSPECIFIED OR GANISM SNOMED Code(s): 821126150 (2) Cough Current Visit: Yes Status: Acute Code(s): R05.9 - COUGH, UNSPECIFIED SNOMED Code(s): 98537387 (3) Fever Current Visit: Yes Status: Acute Code(s): R50.9 - FEVER, UNSPECIFIED SNOMED Code(s): 481756396 (4) Leukocytosis Current Visit: Yes Status: Acute Code(s): D72.829 - ELEVATED WHITE BLOOD CELL COUNT, UNSPECIFIED SNOMED Code(s): 751736774 (5) Lung abscess Current Visit: Yes Status: Acute Code(s): J85.2 - ABSCESS OF LUNG WITHOUT PNEUMONIA SNOMED Code(s): 78056659 Plan: Right upper lobe pneumonia possible abscess IV antibiotics x3 Acute exacerbation chronic COPD An infrarenal aortic aneurysm measuring 2.9 cm Elevated liver functions Pulmonary consultation Waiting on sputum cultures and blood cultures Time with Patient: Greater than 30
[2022-11-05] MEDS: VANCOMYCIN 1,500 MG in SODIUM CHLORIDE 0.9% 500 ML 500 ML IVPB SCH (23:13)
[2022-11-06] MEDS: SODIUM CHLORIDE 0.9% 1,000 ML IV SCH ×3 (02:14→16:13)
[2022-11-06] MEDS: PIPERACILLIN-TAZOBACTAM 3.375 GM in SODIUM CHLORIDE 0.9% 100 ML IVPB SCH ×3 (04:09→20:09)
[2022-11-06 07:02] LABS: African American GFR (CKD) >90 (>60 ml/min/1.73 sqM); Non-African American GFR(CKD) >90 (>60 ml/min/1.73 sqM)
--- NOTE | 2022-11-06 07:26 | XR ---
EXAMINATION TYPE: XR chest 2V DATE OF EXAM: 11/06/2022 COMPARISON: 11/04/2022 HISTORY: Shortness of breath TECHNIQUE: Frontal and lateral views of the chest are obtained. FINDINGS: Stable extensive airspace consolidation right upper lobe extending from the mid lung zone through the right lung apex. The left lung is clear. No evidence for infiltrate. No evidence for atelectasis. Heart size is stable. Mediastinal structures are stable and grossly unremarkable. No evidence for hilar prominence. Degenerative changes dorsal spine. IMPRESSION: 1. Stable extensive airspace consolidation right upper lobe extending from the mid lung zone through the right lung apex.
[2022-11-06] MEDS: IPRATROPIUM-ALBUTEROL 3 ML NEB INHALATION SCH ×5 (07:51→20:26)
[2022-11-06] MEDS: CLINDAMYCIN 600 MG/50 ML-D5W 600 MG in DEXTROSE/WATER 1 50ML.BAG IVPB SCH ×3 (08:14→23:12)
[2022-11-06] MEDS: THIAMINE 100 MG TAB PO SCH (08:14)
[2022-11-06] MEDS: NICOTINE 21MG/24HR PATCH TRANSDERM SCH ×2 (08:14→08:26)
[2022-11-06] MEDS: VANCOMYCIN 1,500 MG in SODIUM CHLORIDE 0.9% 500 ML 500 ML IVPB SCH (09:00)
--- NOTE | 2022-11-06 12:41 | P.PN ---
Subjective Progress Note Date: 11/06/22 I am seeing this patient in new consultation today 11/04/2022 for right upper and middle lobe cavitating pneumonia. Patient is a 71-year-old white male with known past medical history of hypertension. He is also a 2 pack per day smoker. On my interview, the patient states that his daughter normally handles all this, and to ask her. He is unsure of his own medical history, but denies any history of lung disease. The patient has been reportedly experiencing shortness of breath with a productive cough and yellow sputum production for approximately one month. He does have associated right-sided chest pain especially with inspiration and cough. He has been more fatigued lately. He denies hemoptysis or recent unintentional weight loss. He is currently sitting up in bed, on room air, in no acute distress. Chest CTA on arrival shows no evidence of pulmonary embolism. It does show patchy consolidation throughout the right upper and middle lobes with regions of cavitation likely representing pneumonia with small pulmonary abscesses. There was also reactive right hilar lymph, a trace right pleural effusion, and mild COPD-like changes. CT of the abdomen pelvis showed no acute abdominal process, there was an infrarenal abdominal aortic aneurysm measuring up to 2.9 cm. CBC on arrival shows leukocytosis with a WBC count of 21, hemoglobin 13.7, hematocrit 42.6, platelets 434. CMP shows a sodium 133, potassium 4.3, chloride 97, serum CO2 23, BUN 21, creatinine 1.02, glucose 124. LFTs were elevated including an AST of 256, ALT 139, ALP of 207. Troponin negative 1. NT proBNP level. Negative for influenza, RSV, COVID-19. Patient is being empirically covered on a combination of Zosyn and clindamycin. He is febrile with a T-max of 100.2F. Vital signs are stable. On today's evaluation of 62,023, the patient is resting comfortably in bed and the patient is covered with triple antibiotics for an extensive right upper lobe pneumonia with cavitation and development of micro-abscesses. The white cell count is still elevated. The patient's pro-calcitonin level is still pending for now. Meanwhile, the most recent white cell count from yesterday was 23.5 and a hemoglobin is at 12. No chest pain. No hemoptysis. Legionella urine antigen has been negative. The patient has no other complaints otherwise for now. He is covered with a combination of clindamycin, vancomycin and Zosyn. On 11/06/2022, clinically stable and the patient has some limited improvement of the chest x-ray findings with improvement elevation of the right upper lobe on today's chest x-ray. Remains on triple antibiotic coverage. The patient's pro- calcitonin level is at 0.24. Creatinine is at 0.7. Remains on room air oxygen. Objective - Vital Signs Vital signs: Vital Signs Temp 98.1 F 11/06/22 07:00 Pulse 84 11/06/22 12:36 Resp 16 11/06/22 07:00 BP 135/71 11/06/22 07:00 Pulse Ox 96 11/06/22 07:52 FiO2 Intake & Output 11/05/22 11/06/22 11/06/22 18:59 06:59 18:59 Intake Total 118 Output Total 200 400 Balance -82 -400 Intake: Oral 118 Output: Urine 200 400 Other: Voiding Method Toilet Toilet Toilet Urinal Urinal Urinal # Voids 3 - Exam GENERAL EXAM: Alert, 71-year-old white male , comfortable in no apparent distress. HEAD: Normocephalic and atraumatic EYES: Normal reaction of pupils, equal size. NOSE: Clear with pink turbinates. THROAT: No erythema or exudates. NECK: No masses, no JVD. CHEST: No chest wall deformity. LUNGS: Diminished right upper lobe lung sounds. No crackles, wheeze, rhonchi or dullness. On room air. No conversational dyspnea or accessory muscle use.. CVS: S1 and S2 normal with no audible murmur, regular rhythm. No extra heart sounds ABDOMEN: No hepatosplenomegaly, active bowel sounds, no guarding or rigidity. SPINE: No scoliosis or deformity SKIN: No rashes CENTRAL NERVOUS SYSTEM: No focal deficits, tone is normal in all 4 extremities. EXTREMITIES: There is no peripheral edema, clubbing, or cyanosis. Peripheral pulses are intact. - Labs CBC & Chem 7: 11/04/22 06:02 11/06/22 06:22 Labs: Abnormal Lab Results - Last 24 Hours (Table) 11/05/22 Range/Units 08:49 Procalcitonin 0.24 H (0.02-0.09) ng/mL Microbiology - Last 24 Hours (Table) 11/03/22 20:55 Blood Culture - Preliminary Blood 11/03/22 21:12 Blood Culture - Preliminary Blood Assessment and Plan Assessment: Right upper lobe community acquired cavitating pneumonia. Chest CT shows patchy consolidation throughout the right upper and middle lobes with regions of cavitation likely representing pneumonia with small pulmonary abscesses. Leukocytosis Suspected COPD, mild COPD-like changes were seen on chest CTA Infrarenal abdominal aortic aneurysm measuring up to 2.9 cm Hypertension Elevated LFTs, currently under evaluation Chronic nicotine dependence, current 2 pack per day smoker Plan: Limited improvement and a chest x-ray findings Continue broad-spectrum antibiotic coverage Continue Zosyn, clindamycin and vancomycin pro-calcitonin level, level is at 0.24 Follow-up white cell count Follow-up chest x-ray in the morning Monitor LFTs Ultrasound the liver was noted and there is no biliary obstruction obtain ultrasound of liver Nicotine replacement offered Smoking cessation education performed We will continue to follow
--- NOTE | 2022-11-06 13:16 | P.PN ---
Subjective Progress Note Date: 11/06/22 Principal diagnosis: Right upper lobe pneumonia Patient is awake, resting comfortably, vital signs are stable patient is afebrile blood pressure is 135/71 no new complaints, Objective - Vital Signs Vital signs: Vital Signs Temp 98.1 F 11/06/22 07:00 Pulse 84 11/06/22 12:36 Resp 16 11/06/22 07:00 BP 135/71 11/06/22 07:00 Pulse Ox 96 11/06/22 07:52 FiO2 Intake & Output 11/05/22 11/06/22 11/06/22 18:59 06:59 18:59 Intake Total 118 Output Total 200 400 Balance -82 -400 Intake: Oral 118 Output: Urine 200 400 Other: Voiding Method Toilet Toilet Toilet Urinal Urinal Urinal # Voids 3 - Exam General: [Patient awake, alert and oriented times 3. Patient in no acute distress.] HEENT: [PERRL. EOMI. No pharyngeal erythema or exudate.] Neck: [No adenopathy.] Cardiac: [Heart regular in rate and rhythm. No S3. No S4. No clicks, rubs. No murmur.] Lungs: Diminished breath sounds bilaterally, mild right-sided consolidation Abdomen: [No mass. No organomegaly. Bowel sounds presnt and normoactive in all 4 quadrants.] Extremes: [No edema no cyanosis no claudication normal pulses] : Normal male genitalia Musculoskeletal: [No joint erythema, edema or tenderness.] Skin: [No rash.] Neurologic: [No lateralizing deficits. CN II - XII grossly intact.] Lymphatic: [No adenopathy.] - Labs CBC & Chem 7: 11/04/22 06:02 11/06/22 06:22 Labs: Abnormal Lab Results - Last 24 Hours (Table) 11/05/22 Range/Units 08:49 Procalcitonin 0.24 H (0.02-0.09) ng/mL Microbiology - Last 24 Hours (Table) 11/03/22 20:55 Blood Culture - Preliminary Blood 11/03/22 21:12 Blood Culture - Preliminary Blood Assessment and Plan (1) CAP (community acquired pneumonia) Current Visit: Yes Status: Acute Code(s): J18.9 - PNEUMONIA, UNSPECIFIED ORGANISM SNOMED Code(s): 461532977 (2) Cough Current Visit: Yes Status: Acute Code(s): R05.9 - COUGH, UNSPECIFIED SNOMED Code(s): 85269019 (3) Fever Current Visit: Yes Status: Acute Code(s): R50.9 - FEVER, UNSPECIFIED SNOMED Code(s): 771995539 (4) Leukocytosis Current Visit: Yes Status: Acute Code(s): D72.829 - ELEVATED WHITE BLOOD CELL COUNT, UNSPECIFIED SNOMED Code(s): 480948247 (5) Lung abscess Current Visit: Yes Status: Acute Code(s): J85.2 - ABSCESS OF LUNG WITHOUT PNEUMONIA SNOMED Code(s): 12582765 Plan: Right upper lobe pneumonia possible abscess IV antibiotics x3 Acute exacerbation chronic COPD An infrarenal aortic aneurysm measuring 2.9 cm Elevated liver functions Pulmonary consultation Awaiting repeat CBC Waiting on sputum cultures and blood cultures Time with Patient: Greater than 30
[2022-11-06] MEDS: IBUPROFEN 400 MG TAB PO PRN (18:09)
[2022-11-07] MEDS: VANCOMYCIN 1,500 MG in SODIUM CHLORIDE 0.9% 500 ML 500 ML IVPB SCH ×2 (00:15→10:18)
[2022-11-07] MEDS: SODIUM CHLORIDE 0.9% 1,000 ML IV SCH ×3 (02:12→16:43)
[2022-11-07] MEDS: PIPERACILLIN-TAZOBACTAM 3.375 GM in SODIUM CHLORIDE 0.9% 100 ML IVPB SCH ×3 (04:19→20:50)
--- NOTE | 2022-11-07 07:40 | XR ---
EXAMINATION TYPE: XR chest 1V DATE OF EXAM: 11/07/2022 HISTORY: Shortness of breath. COMPARISON: 11/06/2022 TECHNIQUE: Single view of the chest is submitted. FINDINGS: Demonstrated are scattered senescent parenchymal change. Masslike area of the airspace consolidation right mid and right upper lung field with peripheral area s of reticulonodular infiltrate noted. New areas of central lucency could reflect interval improvemen t versus necrosis. Continued follow-up advised. The heart is stable. Hilar and mediastinal structures are within normal limits. Degenerative changes are seen of the dorsal spine. IMPRESSION: 1. Masslike area of the airspace consolidation right mid and right upper lung field with peripheral areas of reticulonodular infiltrate noted. New areas of central lucency could reflect interval impro vement versus necrosis. Continued follow-up advised.
[2022-11-07] MEDS ORDERED: VANCOMYCIN TROUGH DUE 1 EACH MISC MISCELLANE ONE (08:00)
[2022-11-07] MEDS: IPRATROPIUM-ALBUTEROL 3 ML NEB INHALATION SCH ×4 (08:09→19:14)
[2022-11-07 08:25] LABS: Basophils % (A) 0 %; Eosinophils # (A) 0.2 k/uL (0-0.7); Eosinophils % (A) 1 %; HCT 39.1 % (39.0-53.0); HGB 12.3 gm/dL (13.0-17.5); Hypochromasia Slight; Lymphocytes # (A) 1.1 k/uL (1.0-4.8); Lymphocytes % (A) 8 %; MCH 30.1 pg (25.0-35.0); MCHC 31.5 g/dL (31.0-37.0); MCV 95.3 fL (80.0-100.0); Mean Platelet Volume 7.2; Monocytes # (A) 0.6 k/uL (0-1.0); Monocytes % (A) 4 %; Neutrophils % (A) 85 %; Platelet Count 546 k/uL (150-450); RDW 13.5 % (11.5-15.5)
[2022-11-07 08:47] LABS: ALT 55 U/L (4-49); AST 46 U/L (17-59); African American GFR (CKD) >90 (>60 ml/min/1.73 sqM); Albumin 2.3 g/dL (3.5-5.0); Albumin/Globulin Ratio 0.7; Alkaline Phosphatase 136 U/L (38-126); Anion Gap 6 mmol/L; Blood Urea Nitrogen 2 mg/dL (9-20); Calcium 7.8 mg/dL (8.4-10.2); Carbon Dioxide 29 mmol/L (22-30); Chloride 104 mmol/L (98-107); Globulin 3.2 g/dL; Glucose 109 mg/dL (74-99); Non-African American GFR(CKD) >90 (>60 ml/min/1.73 sqM); Potassium 3.3 mmol/L (3.5-5.1); Sodium 139 mmol/L (137-145); Total Bilirubin 1.1 mg/dL (0.2-1.3); Total Protein 5.5 g/dL (6.3-8.2)
[2022-11-07] MEDS: THIAMINE 100 MG TAB PO SCH (08:48)
[2022-11-07] MEDS: CLINDAMYCIN 600 MG/50 ML-D5W 600 MG in DEXTROSE/WATER 1 50ML.BAG IVPB SCH ×3 (08:48→22:29)
[2022-11-07] MEDS: NICOTINE 21MG/24HR PATCH TRANSDERM SCH (08:49)
--- NOTE | 2022-11-07 09:59 | P.PN ---
Subjective Progress Note Date: 11/07/22 Principal diagnosis: Right upper lobe pneumonia Patient is awake, resting comfortably, vital signs are stable patient is afebrile blood pressure is 135/71 no new complaints,still coughing Objective - Vital Signs Vital signs: Vital Signs Temp 97.7 F 11/07/22 08:00 Pulse 117 H 11/07/22 08:00 Resp 17 11/07/22 08:00 BP 147/78 11/07/22 08:00 Pulse Ox 94 L 11/07/22 08:35 FiO2 21 11/07/22 08:35 Intake & Output 11/06/22 11/07/22 11/07/22 18:59 06:59 18:59 Intake Total 118 Output Total 600 600 800 Balance -482 600 -800 Intake: Oral 118 Output: Urine 600 600 800 Other: Voiding Method Toilet Toilet Urinal Urinal # Bowel Movements 1 - Exam General: [Patient awake, alert and oriented times 3. Patient in no acute distress.] HEENT: [PERRL. EOMI. No pharyngeal erythema or exudate.] Neck: [No adenopathy.] Cardiac: [Heart regular in rate and rhythm. No S3. No S4. No clicks, rubs. No murmur.] Lungs: Diminished breath sounds bilaterally, mild right-sided consolidation Abdomen: [No mass. No organomegaly. Bowel sounds presnt and normoactive in all 4 quadrants.] Extremes: [No edema no cyanosis no claudication normal pulses] : Normal male genitalia Musculoskeletal: [No joint erythema, edema or tenderness.] Skin: [No rash.] Neurologic: [No lateralizing deficits. CN II - XII grossly intact.] Lymphatic: [No adenopathy.] - Labs CBC & Chem 7: 11/07/22 07:54 11/07/22 07:54 Labs: Abnormal Lab Results - Last 24 Hours (Table) 11/07/22 11/07/22 Range/Units 07:54 07:54 WBC 14.0 H (3.8-10.6) k/uL RBC 4.10 L (4.30-5.90) m/uL Hgb 12.3 L (13.0-17.5) gm/dL Plt Count 546 H (150-450) k/uL Neutrophils # 12.0 H (1.3-7.7) k/uL Potassium 3.3 L (3.5-5.1) mmol/L BUN 2 L (9-20) mg/dL Glucose 109 H (74-99) mg/dL Calcium 7.8 L (8.4-10.2) mg/dL ALT 55 H (4-49) U/L Alkaline Phosphatase 136 H (38-126) U/L Total Protein 5.5 L (6.3-8.2) g/dL Albumin 2.3 L (3.5-5.0) g/dL Microbiology - Last 24 Hours (Table) 11/03/22 20:55 Blood Culture Gram Stain - Preliminary Blood Blood Culture - Preliminary 11/04/22 09:44 Gram Stain - Preliminary Sputum Sputum Culture - Preliminary 11/03/22 21:12 Blood Culture - Preliminary Blood Assessment and Plan (1) CAP (community acquired pneumonia) Current Visit: Yes Status: Acute Code(s): J18.9 - PNEUMONIA, UNSPECIFIED ORGANISM SNOMED Code(s): 038682686 (2) Cough Current Visit: Yes Status: Acute Code(s): R05.9 - COUGH, UNSPECIFIED SNOMED Code(s): 07166817 (3) Fever Current Visit: Yes Status: Acute Code(s): R50.9 - FEVER, UNSPECIFIED SNOMED Code(s): 728906956 (4) Leukocytosis Current Visit: Yes Status: Acute Code(s): D72.829 - ELEVATED WHITE BLOOD CELL COUNT, UNSPECIFIED SNOMED Code(s): 744880366 (5) Lung abscess Current Visit: Yes Status: Acute Code(s): J85.2 - ABSCESS OF LUNG WITHOUT PNEUMONIA SNOMED Code(s): 81216860 Plan: Right upper lobe pneumonia possible abscess IV antibiotics x3 Acute exacerbation chronic COPD An infrarenal aortic aneurysm measuring 2.9 cm Elevated liver functions Pulmonary consultation White count improved 14,000 down from 23,000 Waiting on sputum cultures and blood cultures As patient continues to improve anticipate home tomorrow Time with Patient: Greater than 30
[2022-11-07 11:41] LABS: HCT 40.2 % (39.0-53.0); HGB 12.4 gm/dL (13.0-17.5); Hypochromasia Slight; MCH 28.9 pg (25.0-35.0); MCHC 30.8 g/dL (31.0-37.0); Mean Platelet Volume 7.4; Platelet Count 534 k/uL (150-450); RBC 4.28 m/uL (4.30-5.90); RDW 13.6 % (11.5-15.5); WBC 15.3 k/uL (3.8-10.6)
[2022-11-07] MEDS: IBUPROFEN 400 MG TAB PO PRN ×2 (12:20→18:58)
--- NOTE | 2022-11-07 12:30 | P.PN ---
Subjective Progress Note Date: 11/07/22 I am seeing this patient in new consultation today 11/04/2022 for right upper and middle lobe cavitating pneumonia. Patient is a 71-year-old white male with known past medical history of hypertension. He is also a 2 pack per day smoker. On my interview, the patient states that his daughter normally handles all this, and to ask her. He is unsure of his own medical history, but denies any history of lung disease. The patient has been reportedly experiencing shortness of breath with a productive cough and yellow sputum production for approximately one month. He does have associated right-sided chest pain especially with inspiration and cough. He has been more fatigued lately. He denies hemoptysis or recent unintentional weight loss. He is currently sitting up in bed, on room air, in no acute distress. Chest CTA on arrival shows no evidence of pulmonary embolism. It does show patchy consolidation throughout the right upper and middle lobes with regions of cavitation likely representing pneumonia with small pulmonary abscesses. There was also reactive right hilar lymph, a trace right pleural effusion, and mild COPD-like changes. CT of the abdomen pelvis showed no acute abdominal process, there was an infrarenal abdominal aortic aneurysm measuring up to 2.9 cm. CBC on arrival shows leukocytosis with a WBC count of 21, hemoglobin 13.7, hematocrit 42.6, platelets 434. CMP shows a sodium 133, potassium 4.3, chloride 97, serum CO2 23, BUN 21, creatinine 1.02, glucose 124. LFTs were elevated including an AST of 256, ALT 139, ALP of 207. Troponin negative 1. NT proBNP level. Negative for influenza, RSV, COVID-19. Patient is being empirically covered on a combination of Zosyn and clindamycin. He is febrile with a T-max of 100.2F. Vital signs are stable. On today's evaluation of 62,023, the patient is resting comfortably in bed and the patient is covered with triple antibiotics for an extensive right upper lobe pneumonia with cavitation and development of micro-abscesses. The white cell count is still elevated. The patient's pro-calcitonin level is still pending for now. Meanwhile, the most recent white cell count from yesterday was 23.5 and a hemoglobin is at 12. No chest pain. No hemoptysis. Legionella urine antigen has been negative. The patient has no other complaints otherwise for now. He is covered with a combination of clindamycin, vancomycin and Zosyn. On 11/06/2022, clinically stable and the patient has some limited improvement of the chest x-ray findings with improvement elevation of the right upper lobe on today's chest x-ray. Remains on triple antibiotic coverage. The patient's pro- calcitonin level is at 0.24. Creatinine is at 0.7. Remains on room air oxygen. 11/07/2022, the patient's chest x-ray showing some improved aeration in the right lung. There may be some central cavitation forming. As such, ongoing continuous antibiotic treatment and IV form is recommended. The patient is quite weak and debilitated and he may benefit from rehab the time of discharge. For that reason, it kept in the hospital for IV antibiotic administration. The list on the 15.3 with a hemoglobin of 12.4., The vancomycin levels of 18.7. For cultures are negative thus far. Objective - Vital Signs Vital signs: Vital Signs Temp 97.7 F 11/07/22 08:00 Pulse 117 H 11/07/22 08:00 Resp 17 11/07/22 08:00 BP 147/78 11/07/22 08:00 Pulse Ox 94 L 11/07/22 08:35 FiO2 21 11/07/22 08:35 Intake & Output 11/06/22 11/07/22 11/07/22 18:59 06:59 18:59 Intake Total 118 Output Total 600 600 800 Balance -482 600 -800 Intake: Oral 118 Output: Urine 600 600 800 Other: Voiding Method Toilet Toilet Urinal Urinal # Bowel Movements 1 - Exam GENERAL EXAM: Alert, 71-year-old white male , comfortable in no apparent distress. HEAD: Normocephalic and atraumatic EYES: Normal reaction of pupils, equal size. NOSE: Clear with pink turbinates. THROAT: No erythema or exudates. NECK: No masses, no JVD. CHEST: No chest wall deformity. LUNGS: Diminished right upper lobe lung sounds. No crackles, wheeze, rhonchi or dullness. On room air. No conversational dyspnea or accessory muscle use.. CVS: S1 and S2 normal with no audible murmur, regular rhythm. No extra heart so unds ABDOMEN: No hepatosplenomegaly, active bowel sounds, no guarding or rigidity. SPINE: No scoliosis or deformity SKIN: No rashes CENTRAL NERVOUS SYSTEM: No focal deficits, tone is normal in all 4 extremities. EXTREMITIES: There is no peripheral edema, clubbing, or cyanosis. Peripheral pulses are intact. - Labs CBC & Chem 7: 11/07/22 11:21 11/07/22 07:54 Labs: Abnormal Lab Results - Last 24 Hours (Table) 11/07/22 11/07/22 Range/Units 07:54 07:54 WBC 14.0 H (3.8-10.6) k/uL RBC 4.10 L (4.30-5.90) m/uL Hgb 12.3 L (13.0-17.5) gm/dL Plt Count 546 H (150-450) k/uL Neutrophils # 12.0 H (1.3-7.7) k/uL Potassium 3.3 L (3.5-5.1) mmol/L BUN 2 L (9-20) mg/dL Glucose 109 H (74-99) mg/dL Calcium 7.8 L (8.4-10.2) mg/dL ALT 55 H (4-49) U/L Alkaline Phosphatase 136 H (38-126) U/L Total Protein 5.5 L (6.3-8.2) g/dL Albumin 2.3 L (3.5-5.0) g/dL Microbiology - Last 24 Hours (Table) 11/03/22 21:12 Blood Culture - Preliminary Blood 11/03/22 20:55 Blood Culture Gram Stain - Preliminary Blood Blood Culture - Preliminary 11/04/22 09:44 Gram Stain - Preliminary Sputum Sputum Culture - Preliminary Assessment and Plan Assessment: Right upper lobe community acquired cavitating pneumonia. Chest CT shows patchy consolidation throughout the right upper and middle lobes with regions of cavitation likely representing pneumonia with small pulmonary abscesses. Leukocytosis Suspected COPD, mild COPD-like changes were seen on chest CTA Infrarenal abdominal aortic aneurysm measuring up to 2.9 cm Hypertension Elevated LFTs, currently under evaluation Chronic nicotine dependence, current 2 pack per day smoker Generalized weakness and debility Plan: Chest x-ray showing some improved aeration with possibly some central cavitation Continue IV antibiotics Patient is on room air oxygen Continue Zosyn, clindamycin and vancomycin pro-calcitonin level, level is at 0.24 Follow-up white cell count Follow-up chest x-ray in the morning, this will be done daily basis Monitor LFTs Ultrasound the liver was noted and there is no biliary obstruction obtain ultrasound of liver Nicotine replacement offered Smoking cessation education performed We will continue to follow
[2022-11-08] MEDS: VANCOMYCIN 1,500 MG in SODIUM CHLORIDE 0.9% 500 ML 500 ML IVPB SCH (00:10)
[2022-11-08] MEDS: SODIUM CHLORIDE 0.9% 1,000 ML IV SCH ×4 (00:14→21:09)
[2022-11-08] MEDS: PIPERACILLIN-TAZOBACTAM 3.375 GM in SODIUM CHLORIDE 0.9% 100 ML IVPB SCH ×3 (04:10→21:08)
[2022-11-08 06:42] LABS: African American GFR (CKD) 37 (>60 ml/min/1.73 sqM); Non-African American GFR(CKD) 32 (>60 ml/min/1.73 sqM)
--- NOTE | 2022-11-08 06:59 | XR ---
EXAMINATION TYPE: XR chest 1V DATE OF EXAM: 11/08/2022 6:47 AM COMPARISON: Chest radiographs from 11/07/2022 TECHNIQUE: XR chest 1V Frontal view of the chest. CLINICAL INDICATION:Male, 71 years old with history of Cough; FINDINGS: Lungs/Pleura: Redemonstration of extensive airspace consolidation within the right upper and middle l obes which is centrally more prominent from prior examination. No pneumothorax or pleural effusion. Pulmonary vascularity: Unremarkable. Heart/mediastinum: Cardiomediastinal silhouette is unremarkable. Musculoskeletal: No acute osseous pathology. IMPRESSION: Prominent appearance of airspace consolidation within the right upper and middle lobes again demonstr ated.
[2022-11-08] MEDS: IPRATROPIUM-ALBUTEROL 3 ML NEB INHALATION SCH ×4 (08:16→19:17)
[2022-11-08] MEDS: CLINDAMYCIN 600 MG/50 ML-D5W 600 MG in DEXTROSE/WATER 1 50ML.BAG IVPB SCH (08:41)
[2022-11-08] MEDS: THIAMINE 100 MG TAB PO SCH (08:42)
[2022-11-08] MEDS: NICOTINE 21MG/24HR PATCH TRANSDERM SCH (08:42)
[2022-11-08] MEDS: IBUPROFEN 400 MG TAB PO PRN ×2 (08:57→21:09)
--- NOTE | 2022-11-08 12:02 | P.PN ---
Subjective Progress Note Date: 11/08/22 I am seeing this patient in new consultation today 11/04/2022 for right upper and middle lobe cavitating pneumonia. Patient is a 71-year-old white male with known past medical history of hypertension. He is also a 2 pack per day smoker. On my interview, the patient states that his daughter normally handles all this, and to ask her. He is unsure of his own medical history, but denies any history of lung disease. The patient has been reportedly experiencing shortness of breath with a productive cough and yellow sputum production for approximately one month. He does have associated right-sided chest pain especially with inspiration and cough. He has been more fatigued lately. He denies hemoptysis or recent unintentional weight loss. He is currently sitting up in bed, on room air, in no acute distress. Chest CTA on arrival shows no evidence of pulmonary embolism. It does show patchy consolidation throughout the right upper and middle lobes with regions of cavitation likely representing pneumonia with small pulmonary abscesses. There was also reactive right hilar lymph, a trace right p leural effusion, and mild COPD-like changes. CT of the abdomen pelvis showed no acute abdominal process, there was an infrarenal abdominal aortic aneurysm measuring up to 2.9 cm. CBC on arrival shows leukocytosis with a WBC count of 21, hemoglobin 13.7, hematocrit 42.6, platelets 434. CMP shows a sodium 133, potassium 4.3, chloride 97, serum CO2 23, BUN 21, creatinine 1.02, glucose 124. LFTs were elevated including an AST of 256, ALT 139, ALP of 207. Troponin negative 1. NT proBNP level. Negative for influenza, RSV, COVID-19. Patient is being empirically covered on a combination of Zosyn and clindamycin. He is febrile with a T-max of 100.2F. Vital signs are stable. On today's evaluation of 62,023, the patient is resting comfortably in bed and the patient is covered with triple antibiotics for an extensive right upper lobe pneumonia with cavitation and development of micro-abscesses. The white cell count is still elevated. The patient's pro-calcitonin level is still pending for now. Meanwhile, the most recent white cell count from yesterday was 23.5 and a hemoglobin is at 12. No chest pain. No hemoptysis. Legionella urine antigen has been negative. The patient has no other complaints otherwise for now. He is covered with a combination of clindamycin, vancomycin and Zosyn. On 11/06/2022, clinically stable and the patient has some limited improvement of the chest x-ray findings with improvement elevation of the right upper lobe on today's chest x-ray. Remains on triple antibiotic coverage. The patient's pro- calcitonin level is at 0.24. Creatinine is at 0.7. Remains on room air oxygen. 11/07/2022, the patient's chest x-ray showing some improved aeration in the right lung. There may be some central cavitation forming. As such, ongoing continuous antibiotic treatment and IV form is recommended. The patient is quite weak and debilitated and he may benefit from rehab the time of discharge. For that reason, it kept in the hospital for IV antibiotic administration. The list on the 15.3 with a hemoglobin of 12.4., The vancomycin levels of 18.7. For cultures are negative thus far. The patient is seen today 11/08/2022 in follow-up on the regular medical floor. He is sitting up in a chair at the bedside. Awake and alert in no acute distr ess. Breathing quite a bit better today compared to yesterday. Still not quite back to his baseline. Chest x-ray is showing slight improvement in the infiltrates of the right upper and middle lobes. He is maintaining good O2 saturations in the 90s on room air. He's been afebrile. Blood cultures reveal no growth. Sputum culture revealed no growth. Creatinine 2.04. TSH 2.52. Initial pro-calcitonin was 0.24. He is continued on vancomycin, clindamycin and Zosyn. Objective - Vital Signs Vital signs: Vital Signs Temp 97.7 F 11/08/22 08:00 Pulse 100 11/08/22 11:00 Resp 17 11/08/22 08:00 BP 160/89 11/08/22 08:00 Pulse Ox 99 11/08/22 08:00 FiO2 21 11/08/22 07:40 Intake & Output 11/07/22 11/08/22 11/08/22 18:59 06:59 18:59 Output Total 800 500 Balance -800 -500 Output: Urine 800 500 Other: Voiding Method Toilet Toilet Urinal Urinal # Voids 1 # Bowel Movements 1 - Exam GENERAL EXAM: Alert, pleasant 71-year-old male, on room air, comfortable in no apparent distress. HEAD: Normocephalic. EYES: Normal reaction of pupils, equal size. NOSE: Clear with pink turbinates. THROAT: No erythema or exudates. NECK: No masses, no JVD. CHEST: No chest wall deformity. LUNGS: Equal air entry with few scattered rhonchi more so on the right lung. CVS: S1 and S2 normal with no audible murmur, regular rhythm. ABDOMEN: No hepatosplenomegaly, normal bowel sounds, no guarding or rigidity. SPINE: No scoliosis or deformity SKIN: No rashes CENTRAL NERVOUS SYSTEM: No focal deficits, tone is normal in all 4 extremities. EXTREMITIES: There is no peripheral edema. No clubbing, no cyanosis. Peripheral pulses are intact. - Labs CBC & Chem 7: 11/07/22 11:21 11/08/22 05:54 Labs: Abnormal Lab Results - Last 24 Hours (Table) 11/08/22 Range/Units 05:54 Creatinine 2.04 H (0.66-1.25) mg/dL Microbiology - Last 24 Hours (Table) 11/03/22 21:12 Blood Culture - Preliminary Blood 11/04/22 09:44 Gram Stain - Final Sputum Sputum Culture - Final 11/04/22 09:44 Legionella Culture - Preliminary Sputum Assessment and Plan Assessment: Right upper lobe community acquired cavitating pneumonia. Chest CT shows patchy consolidation throughout the right upper and middle lobes with regions of cavitation likely representing pneumonia with small pulmonary abscesses. Leukocytosis secondary to above Suspected COPD, mild COPD-like changes were seen on chest CTA Infrarenal abdominal aortic aneurysm measuring up to 2.9 cm Hypertension Elevated LFTs, currently under evaluation Chronic nicotine dependence, current 2 pack per day smoker Generalized weakness and debility Plan: The patient was seen and evaluated Chest x-ray, labs and medications reviewed Discontinue clindamycin Continue vancomycin and Zosyn Continue bronchodilators Educated regarding the importance of complete smoking cessation NicoDerm patch in place We will continue to follow I have personally seen and examined the patient, performed the documentation and the assessment and plan as written. Number of minutes spent on the visit: 10.
[2022-11-08 12:10] LABS: Basophils % (A) 0 %; Eosinophils # (A) 0.3 k/uL (0-0.7); Eosinophils % (A) 2 %; HCT 38.1 % (39.0-53.0); HGB 11.8 gm/dL (13.0-17.5); Hypochromasia Moderate; Lymphocytes % (A) 7 %; MCH 29.7 pg (25.0-35.0); MCHC 30.9 g/dL (31.0-37.0); MCV 96.2 fL (80.0-100.0); Monocytes # (A) 0.6 k/uL (0-1.0); Monocytes % (A) 4 %; Neutrophils # (A) 12.5 k/uL (1.3-7.7); Neutrophils % (A) 86 %; Platelet Count 559 k/uL (150-450); RBC 3.97 m/uL (4.30-5.90); RDW 13.6 % (11.5-15.5); WBC 14.5 k/uL (3.8-10.6)
[2022-11-08 12:28] LABS: Anion Gap 10 mmol/L; Blood Urea Nitrogen 9 mg/dL (9-20); Carbon Dioxide 24 mmol/L (22-30); Chloride 106 mmol/L (98-107); Glucose 111 mg/dL (74-99); Potassium 3.6 mmol/L (3.5-5.1); Sodium 140 mmol/L (137-145)
[2022-11-08] MEDS ORDERED: Potassium Replacement Protocol 1 EACH MISC MISCELLANE PRN (13:55)
--- NOTE | 2022-11-08 14:59 | P.PN ---
Subjective Progress Note Date: 11/08/22 This is a 71-year-old gentleman admitted with acute right upper lobe community- acquired cavitating pneumonia. Chest x-rays continued to report prominent right upper lobe consolidation despite being on Zosyn, clindamycin, vancomycin. Vancomycin discontinued secondary to worsening renal function, creatinine 2. Clindamycin discontinued by pulmonary. Bronchoscopy recommended by pulmonary, patient declined. Maintaining O2 sats in the 90s on room air. Afebrile, WBC continues to improve, 14.5. Sputum and blood cultures reporting no growth. Objective - Vital Signs Vital signs: Vital Signs Temp 97.6 F 11/08/22 13:56 Pulse 90 11/08/22 13:56 Resp 18 11/08/22 13:56 BP 123/81 11/08/22 13:56 Pulse Ox 93 L 11/08/22 13:56 FiO2 21 11/08/22 07:40 Intake & Output 11/07/22 11/08/22 11/08/22 18:59 06:59 18:59 Output Total 800 500 Balance -800 -500 Output: Urine 800 500 Other: Voiding Method Toilet Toilet Urinal Urinal # Voids 1 # Bowel Movements 1 - Exam PHYSICAL EXAM: VITAL SIGNS: [As above] GENERAL: Sitting up in chair, no acute distress, mild anxiety HEENT: Conjunctivae normal. eyes normal. NECK: Supple, No JVD. CARDIOVASCULAR: S1, S2 regular.. No murmur RESPIRATION: Nonlabored, scattered rhonchi with bilateral bases diminished. ABDOMEN: Soft, nontender . No guarding. no masses palpable. +BS. LEGS: No edema. no swelling, no calf tenderness. PSYCHIATRY: Alert and oriented X3, mood and affect normal. NERVOUS SYSTEM: Cranial N 2-12 grossly normal. Moves all 4 limbs.No focal deficits.Strength and sensation grossly intact. Skin: Warm and dry no rash Microbiology 11/03/22 21:12 Blood Blood Culture - Preliminary 11/04/22 09:44 Sputum Gram Stain - Final 11/04/22 09:44 Sputum Sputum Culture - Final 11/04/22 09:44 Sputum Legionella Culture - Preliminary 11/03/22 20:55 Blood Blood Culture Gram Stain - Preliminary 11/03/22 20:55 Blood Blood Culture - Preliminary - Labs CBC & Chem 7: 11/08/22 05:54 11/08/22 05:54 Labs: Abnormal Lab Results - Last 24 Hours (Table) 11/08/22 11/08/22 Range/Units 05:54 05:54 WBC 14.5 H (3.8-10.6) k/uL RBC 3.97 L (4.30-5.90) m/uL Hgb 11.8 L (13.0-17.5) gm/dL Hct 38.1 L (39.0-53.0) % MCHC 30.9 L (31.0-37.0) g/dL Plt Count 559 H (150-450) k/uL Neutrophils # 12.5 H (1.3-7.7) k/uL Creatinine 2.04 H (0.66-1.25) mg/dL Glucose 111 H (74-99) mg/dL Calcium 8.0 L (8.4-10.2) mg/dL Microbiology - Last 24 Hours (Table) 11/03/22 21:12 Blood Culture - Preliminary Blood 11/04/22 09:44 Gram Stain - Final Sputum Sputum Culture - Final 11/04/22 09:44 Legionella Culture - Preliminary Sputum Assessment and Plan Assessment: Right upper lobe community-acquired cavitating pneumonia, small pulmonary abscesses Leukocytosis secondary to the above COPD Infrarenal abdominal aortic aneurysm, 2.9 cm Elevated LFTs Hypertension Ongoing nicotine dependence, 2 pack per day Generalized weakness, debility Plan: Continue on current medication regime ,monitoring and symptomatic treatment. Vancomycin discontinued secondary to worsening renal function. Close monitoring of renal function. Infectious disease consulted. Aggressive pulmonary toileting with nebulized bronchodilators. Smoking cessation reinforced. Evaluated by physical therapy and home care recommended at discharge. The impression and plan of care has been dictated as directed. : I performed a history and examination of this patient, discussed the same with the dictator. I agree with the dictator's note ,documented as a scribe. Any additional findings or plans will be noted.
--- NOTE | 2022-11-08 22:11 | P.CONS ---
History of Present Illness - Reason for Consult Consult date: 11/08/22 cavitatory pneumonia Requesting physician: Katheryn Molina - Chief Complaint Shortness of breath and cough x days - History of Present Illness patient is a 71-year-old male with a past medical history significant for hypertension presenting to the hospital about a week ago on 11/03/2022 for evaluation of fever cough and shortness of breath in this patient's symptom has been going on for few weeks before presentation to the hospital patient on presentation to the hospital did have a low-grade fever 100.2 degrees following right subsequently no fever has been recorded patient did have some hypoxemia off and on but currently on room air satting 97% he did have white count 20,000 which has come down to 14.5 as of this morning kidney function has been normal p rocalcitonin was 0.24 influenza RSV COVID testing was negative patient did have a CT angiogram of the chest that shows patchy consolidation throughout the right upper and middle lobe with regions of cavitation likely representing pneumonia with small pulmonary abscess patient has been evaluated by pulmonary services and the patient was treated with vancomycin and Zosyn and clindamycin the patient did have blood culture drawn on which are now growing gram-positive cocci he did have a sputum obtained on 11/04/2022 dose has been negative for any resistant pathogen patient did have a chest x-ray repeated this morning which shows prominent appearance of airspace consolidation within the right upper and middle lobes infectious disease was consulted today after the patient has been in the hospital for about a week for further management of antibiotic therapy, patient currently denies having any fever or any chills the patient mentions breathing seem to have improved he can did have a cough which has been moderate intensity with a talamantes sputum no hemoptysis denies any pleuritic chest pain no nausea no vomiting no abdominal pain no diarrhea Review of Systems Positive point and negatives has been mentioned in the HPI, complete review of systems was performed and all other systems are negative Past Medical History Past Medical History: Hypertension History of Any Multi-Drug Resistant Organisms: None Reported Past Surgical History: No Surgical Hx Reported Past Anesthesia/Blood Transfusion Reactions: No Reported Reaction Past Psychological History: No Psychological Hx Reported Smoking Status: Current every day smoker Past Alcohol Use History: Rare Past Drug Use History: None Reported Medications and Allergies Home Medications Medication Instructions Recorded Confirmed Type amLODIPine [Norvasc] 5 mg PO BID 11/03/22 11/03/22 History Acetaminophen Tab [Tylenol] 650 mg PO Q4HR PRN tab 11/12/22 Rx Albuterol Inhaler [Ventolin Hfa 2 puff INHALATION QID #8 gm 11/12/22 Rx Inhaler] Nicotine 21Mg/24Hr Patch [Habitrol] 1 patch TRANSDERM DAILY patch 11/12/22 Rx Thiamine [Vitamin B-1] 100 mg PO DAILY tab 11/12/22 Rx Allergies Allergy/AdvReac Type Severity Reaction Status Date / Time No Known Allergies Allergy Verified 11/04/22 10:41 Physical Exam Vitals: Vital Signs Temp Pulse Pulse Resp BP BP Pulse Ox 11/08/22 11:00 100 11/08/22 10:53 96 11/08/22 08:00 97.7 F 90 17 160/89 99 11/08/22 07:40 95 11/08/22 02:20 97.7 F 84 16 113/65 95 11/07/22 19:23 100 11/07/22 19:19 98.0 F 101 H 17 109/67 94 L 11/07/22 19:14 100 11/07/22 15:50 100 11/07/22 15:44 96 11/07/22 14:00 99.0 F 104 H 18 118/42 94 L FiO2 11/08/22 11:00 11/08/22 10:53 11/08/22 08:00 11/08/22 07:40 21 11/08/22 02:20 11/07/22 19:23 11/07/22 19:19 11/07/22 19:14 11/07/22 15:50 11/07/22 15:44 11/07/22 14:00 Intake and Output 11/07/22 11/08/22 11/08/22 22:59 06:59 14:59 Output Total 500 Balance -500 Output: Urine 500 Other: Voiding Method Toilet Urinal # Voids 1 # Bowel Movements 1 GENERAL DESCRIPTION: Elderly male lying in bed, no distress. No tachypnea or accessory muscle of respiration use. HEENT: Shows Pallor , no scleral icterus. Oral mucous membrane is dry. No pharyngeal erythema or thrush NECK: Trachea central, no thyromegaly. LUNGS: Unlabored breathing. Coarse breath sounds bilaterally HEART: S1, S2, regular rate and rhythm. No loud murmur ABDOMEN: Soft, no tenderness , guarding or rigidity, no organomegaly EXTREMITIES: No edema of feet. SKIN: No rash, no masses palpable. NEUROLOGICAL: The patient is awake, alert, oriented x3, mood and affect normal. Results CBC & Chem 7: 11/11/22 06:40 11/12/22 06:17 Labs: Abnormal Lab Results - Last 24 Hours (Table) 11/08/22 11/08/22 Range/Units 05:54 05:54 WBC 14.5 H (3.8-10.6) k/uL RBC 3.97 L (4.30-5.90) m/uL Hgb 11.8 L (13.0-17.5) gm/dL Hct 38.1 L (39.0-53.0) % MCHC 30.9 L (31.0-37.0) g/dL Plt Count 559 H (150-450) k/uL Neutrophils # 12.5 H (1.3-7.7) k/uL Creatinine 2.04 H (0.66-1.25) mg/dL Glucose 111 H (74-99) mg/dL Calcium 8.0 L (8.4-10.2) mg/dL Microbiology - Last 24 Hours (Table) 11/03/22 21:12 Blood Culture - Preliminary Blood 11/04/22 09:44 Gram Stain - Final Sputum Sputum Culture - Final 11/04/22 09:44 Legionella Culture - Preliminary Sputum Assessment and Plan (1) Lung abscess Current Visit: Yes Status: Acute Code(s): J85.2 - ABSCESS OF LUNG WITHOUT PNEUMONIA SNOMED Code(s): 71938443 (2) Pneumonia Current Visit: Yes Status: Acute Code(s): J18.9 - PNEUMONIA, UNSPECIFIED ORGANISM SNOMED Code(s): 958846439 Plan: 1patient presented to hospital with fever increasing shortness of breath and cough in this patient with evidence of right middle and upper lobe pneumonia with evidence of cavitation and possible abscess that has been treated medically patient did have a blood cultures coming back positive gram-positive cocci in chains likely Streptococcus sputum has been negative for any resistant pathogen 2-we will switch antibiotic therapy to Unasyn 3 g every 6 hours 3-in view of extensive pneumonia and possible cavitation and abscess the patient will need PICC line and outpatient IV antibiotic therapy associate product manager to arrange for it this was discussed with the patient nurse We will follow on clinical condition and cultures to further adjust medication if needed Thank you for this consultation we will follow the patient along with you Time with Patient: Greater than 30
[2022-11-08] MEDS: AMPICILLIN-SULBACTAM 3 GM in SODIUM CHLORIDE 0.9% 100 ML IVPB SCH (23:44)
[2022-11-09] MEDS: IPRATROPIUM-ALBUTEROL 3 ML NEB INHALATION SCH ×4 (08:17→21:52)
[2022-11-09 08:33] LABS: Basophils % (A) 0 %; Eosinophils # (A) 0.3 k/uL (0-0.7); Eosinophils % (A) 2 %; HCT 38.3 % (39.0-53.0); HGB 11.7 gm/dL (13.0-17.5); Hypochromasia Moderate; Lymphocytes # (A) 0.9 k/uL (1.0-4.8); Lymphocytes % (A) 6 %; MCH 29.1 pg (25.0-35.0); MCHC 30.5 g/dL (31.0-37.0); MCV 95.2 fL (80.0-100.0); Mean Platelet Volume 7.3; Monocytes # (A) 0.5 k/uL (0-1.0); Monocytes % (A) 4 %; Neutrophils # (A) 12.6 k/uL (1.3-7.7); Neutrophils % (A) 86 %; Platelet Count 540 k/uL (150-450); RBC 4.03 m/uL (4.30-5.90); WBC 14.6 k/uL (3.8-10.6)
[2022-11-09 08:51] LABS: African American GFR (CKD) 20 (>60 ml/min/1.73 sqM); Non-African American GFR(CKD) 17 (>60 ml/min/1.73 sqM)
[2022-11-09] MEDS: THIAMINE 100 MG TAB PO SCH (08:52)
[2022-11-09] MEDS: AMPICILLIN-SULBACTAM 3 GM in SODIUM CHLORIDE 0.9% 100 ML IVPB SCH ×3 (08:52→23:07)
[2022-11-09] MEDS: NICOTINE 21MG/24HR PATCH TRANSDERM SCH (08:57)
[2022-11-09 09:46] LABS: ALT 38 U/L (4-49); AST 48 U/L (17-59); African American GFR (CKD) 20 (>60 ml/min/1.73 sqM); Albumin 2.4 g/dL (3.5-5.0); Albumin/Globulin Ratio 0.7; Alkaline Phosphatase 98 U/L (38-126); Anion Gap 9 mmol/L; Blood Urea Nitrogen 17 mg/dL (9-20); C Reactive Protein 13.2 mg/dL (<1.0); Calcium 7.7 mg/dL (8.4-10.2); Carbon Dioxide 21 mmol/L (22-30); Chloride 111 mmol/L (98-107); Globulin 3.3 g/dL; Glucose 95 mg/dL (74-99); Non-African American GFR(CKD) 17 (>60 ml/min/1.73 sqM); Sodium 141 mmol/L (137-145); Total Bilirubin 0.9 mg/dL (0.2-1.3); Total Protein 5.7 g/dL (6.3-8.2)
[2022-11-09] MEDS: SODIUM CHLORIDE 0.9% 1,000 ML IV SCH ×3 (11:50→18:51)
--- NOTE | 2022-11-09 12:36 | P.PN ---
Subjective Progress Note Date: 11/09/22 I am seeing this patient in new consultation today 11/04/2022 for right upper and middle lobe cavitating pneumonia. Patient is a 71-year-old white male with known past medical history of hypertension. He is also a 2 pack per day smoker. On my interview, the patient states that his daughter normally handles all this, and to ask her. He is unsure of his own medical history, but denies any history of lung disease. The patient has been reportedly experiencing shortness of breath with a productive cough and yellow sputum production for approximately one month. He does have associated right-sided chest pain especially with inspiration and cough. He has been more fatigued lately. He denies hemoptysis or recent unintentional weight loss. He is currently sitting up in bed, on room air, in no acute distress. Chest CTA on arrival shows no evidence of pulmonary embolism. It does show patchy consolidation throughout the right upper and middle lobes with regions of cavitation likely representing pneumonia with small pulmonary abscesses. There was also reactive right hilar lymph, a trace right p leural effusion, and mild COPD-like changes. CT of the abdomen pelvis showed no acute abdominal process, there was an infrarenal abdominal aortic aneurysm measuring up to 2.9 cm. CBC on arrival shows leukocytosis with a WBC count of 21, hemoglobin 13.7, hematocrit 42.6, platelets 434. CMP shows a sodium 133, potassium 4.3, chloride 97, serum CO2 23, BUN 21, creatinine 1.02, glucose 124. LFTs were elevated including an AST of 256, ALT 139, ALP of 207. Troponin negative 1. NT proBNP level. Negative for influenza, RSV, COVID-19. Patient is being empirically covered on a combination of Zosyn and clindamycin. He is febrile with a T-max of 100.2F. Vital signs are stable. On today's evaluation of 62,023, the patient is resting comfortably in bed and the patient is covered with triple antibiotics for an extensive right upper lobe pneumonia with cavitation and development of micro-abscesses. The white cell count is still elevated. The patient's pro-calcitonin level is still pending for now. Meanwhile, the most recent white cell count from yesterday was 23.5 and a hemoglobin is at 12. No chest pain. No hemoptysis. Legionella urine antigen has been negative. The patient has no other complaints otherwise for now. He is covered with a combination of clindamycin, vancomycin and Zosyn. On 11/06/2022, clinically stable and the patient has some limited improvement of the chest x-ray findings with improvement elevation of the right upper lobe on today's chest x-ray. Remains on triple antibiotic coverage. The patient's pro- calcitonin level is at 0.24. Creatinine is at 0.7. Remains on room air oxygen. 11/07/2022, the patient's chest x-ray showing some improved aeration in the right lung. There may be some central cavitation forming. As such, ongoing continuous antibiotic treatment and IV form is recommended. The patient is quite weak and debilitated and he may benefit from rehab the time of discharge. For that reason, it kept in the hospital for IV antibiotic administration. The list on the 15.3 with a hemoglobin of 12.4., The vancomycin levels of 18.7. For cultures are negative thus far. The patient is seen today 11/08/2022 in follow-up on the regular medical floor. He is sitting up in a chair at the bedside. Awake and alert in no acute distr ess. Breathing quite a bit better today compared to yesterday. Still not quite back to his baseline. Chest x-ray is showing slight improvement in the infiltrates of the right upper and middle lobes. He is maintaining good O2 saturations in the 90s on room air. He's been afebrile. Blood cultures reveal no growth. Sputum culture revealed no growth. Creatinine 2.04. TSH 2.52. Initial pro-calcitonin was 0.24. He is continued on vancomycin, clindamycin and Zosyn. The patient is seen today 11/09/2022 in follow-up on the regular medical floor. He sitting up at the bedside. Awake and alert in no acute distress. Blood culture was revealing gram-positive cocci in chains. Sputum culture revealed no growth. White count 14.6. Hemoglobin 11.7. Platelet count 540,000. Sodium 141. Potassium 4.0. Bicarb 21. BUN 17. Creatinine 3.42. His antibiotics have been switched to Unasyn. NicoDerm patches in place. Remains on bronchodilators. Objective - Vital Signs Vital signs: Vital Signs Temp 97.6 F 11/09/22 08:00 Pulse 72 11/09/22 08:00 Resp 20 11/09/22 08:00 BP 122/66 11/09/22 08:00 Pulse Ox 94 L 11/09/22 08:00 FiO2 21 11/08/22 07:40 Intake & Output 11/08/22 11/09/22 11/09/22 18:59 06:59 18:59 Other: Voiding Method Toilet Toilet Urinal Urinal # Voids 3 1 # Bowel Movements 1 1 - Exam GENERAL EXAM: Alert, 71-year-old male, sitting up in bed, on room air, comfortable in no apparent distress. HEAD: Normocephalic. EYES: Normal reaction of pupils, equal size. NOSE: Clear with pink turbinates. THROAT: No erythema or exudates. NECK: No masses, no JVD. CHEST: No chest wall deformity. LUNGS: Equal air entry with few scattered rhonchi more so on the right lung. CVS: S1 and S2 normal with no audible murmur, regular rhythm. ABDOMEN: No hepatosplenomegaly, normal bowel sounds, no guarding or rigidity. SPINE: No scoliosis or deformity SKIN: No rashes CENTRAL NERVOUS SYSTEM: No focal deficits, tone is normal in all 4 extremities. EXTREMITIES: There is no peripheral edema. No clubbing, no cyanosis. Peripheral pulses are intact. - Labs CBC & Chem 7: 11/09/22 08:19 11/09/22 08:19 Labs: Abnormal Lab Results - Last 24 Hours (Table) 11/09/22 11/09/22 11/09/22 Range/Units 08:19 08:19 08:19 WBC 14.6 H (3.8-10.6) k/uL RBC 4.03 L (4.30-5.90) m/uL Hgb 11.7 L (13.0-17.5) gm/dL Hct 38.3 L (39.0-53.0) % MCHC 30.5 L (31.0-37.0) g/dL Plt Count 540 H (150-450) k/uL Neutrophils # 12.6 H (1.3-7.7) k/uL Lymphocytes # 0.9 L (1.0-4.8) k/uL Chloride 111 H (98-107) mmol/L Carbon Dioxide 21 L (22-30) mmol/L Creatinine 3.39 H 3.42 H (0.66-1.25) mg/dL Calcium 7.7 L (8.4-10.2) mg/dL C-Reactive Protein 13.2 H (<1.0) mg/dL Total Protein 5.7 L (6.3-8.2) g/dL Albumin 2.4 L (3.5-5.0) g/dL Microbiology - Last 24 Hours (Table) 11/03/22 21:12 Blood Culture - Final Blood Assessment and Plan Assessment: Right upper lobe community acquired cavitating pneumonia. Chest CT shows patchy consolidation throughout the right upper and middle lobes with regions of cavitation likely representing pneumonia with small pulmonary abscesses. Leukocytosis secondary to above Suspected COPD, mild COPD-like changes were seen on chest CTA Infrarenal abdominal aortic aneurysm measuring up to 2.9 cm Hypertension Elevated LFTs, currently under evaluation Chronic nicotine dependence, current 2 pack per day smoker Generalized weakness and debility Plan: The patient was seen and evaluated Labs and medications reviewed Remains stable and on room air Currently on Unasyn ID is on the case Continue bronchodilators Again educated regarding the importance of complete smoking cessation NicoDerm patch in place Home once antibiotic decision is made per ID service I have personally seen and examined the patient, performed the documentation and the assessment and plan as written. Number of minutes spent on the visit: 10.
[2022-11-09 14:16] VITALS: BMI 27.4
--- NOTE | 2022-11-09 15:02 | P.PN ---
Subjective Progress Note Date: 11/09/22 This is a 71-year-old gentleman admitted with acute right upper lobe community- acquired cavitating pneumonia. Chest x-rays continued to report prominent right upper lobe consolidation despite being on Zosyn, clindamycin, vancomycin. Vancomycin discontinued secondary to worsening renal function, creatinine 2. Clindamycin discontinued by pulmonary. Bronchoscopy recommended by pulmonary, patient declined. Maintaining O2 sats in the 90s on room air. Afebrile, WBC continues to improve, 14.5. Sputum and blood cultures reporting no growth. 11/09/2022 blood cultures reporting gram-positive cocci in chains , sputum culture reporting no growth . Worsening renal function, creatinine 3.42, vancomycin discontinued yesterday.evaluated by infectious disease, antibiotics adjusted, currently on Unasyn and recommending PICC line placement for outpatient IV antibiotic therapy. Afebrile, WBC 14.6. Electrolytes within normal limits. Continues on nebulized bronchodilators, maintaining O2 sats in the 90s on room air. Objective - Vital Signs Vital signs: Vital Signs Temp 97.6 F 11/09/22 08:00 Pulse 80 11/09/22 12:51 Resp 20 11/09/22 08:00 BP 122/66 11/09/22 08:00 Pulse Ox 94 L 11/09/22 08:00 FiO2 21 11/08/22 07:40 Intake & Output 11/08/22 11/09/22 11/09/22 18:59 06:59 18:59 Weight 77.111 kg Other: Voiding Method Toilet Toilet Urinal Urinal # Voids 3 1 # Bowel Movements 1 1 - Exam PHYSICAL EXAM: VITAL SIGNS: [As above] GENERAL: Sitting up at bedside, no acute distress HEENT: Normocephalic, Conjunctivae normal. eyes normal. NECK: Supple, No JVD. CARDIOVASCULAR: S1, S2 regular.. No murmur RESPIRATION: Nonlabored, occasional scattered rhonchi with bilateral bases diminished. ABDOMEN: Soft, nontender . No guarding. no masses palpable. +BS. LEGS: No edema. no swelling, no calf tenderness. PSYCHIATRY: Alert and oriented X3, mood and affect normal. NERVOUS SYSTEM: Cranial N 2-12 grossly normal.No focal deficits.Strength and sensation grossly intact. Skin: Warm and dry no rash Microbiology 11/03/22 21:12 Blood Blood Culture - Final 11/04/22 09:44 Sputum Gram Stain - Final 11/04/22 09:44 Sputum Sputum Culture - Final 11/04/22 09:44 Sputum Legionella Culture - Preliminary 11/03/22 20:55 Blood Blood Culture Gram Stain - Preliminary 11/03/22 20:55 Blood Blood Culture - Preliminary - Labs CBC & Chem 7: 11/09/22 08:19 11/09/22 08:19 Labs: Abnormal Lab Results - Last 24 Hours (Table) 11/09/22 11/09/22 11/09/22 Range/Units 08:19 08:19 08:19 WBC 14.6 H (3.8-10.6) k/uL RBC 4.03 L (4.30-5.90) m/uL Hgb 11.7 L (13.0-17.5) gm/dL Hct 38.3 L (39.0-53.0) % MCHC 30.5 L (31.0-37.0) g/dL Plt Count 540 H (150-450) k/uL Neutrophils # 12.6 H (1.3-7.7) k/uL Lymphocytes # 0.9 L (1.0-4.8) k/uL Chloride 111 H (98-107) mmol/L Carbon Dioxide 21 L (22-30) mmol/L Creatinine 3.39 H 3.42 H (0.66-1.25) mg/dL Calcium 7.7 L (8.4-10.2) mg/dL C-Reactive Protein 13.2 H (<1.0) mg/dL Total Protein 5.7 L (6.3-8.2) g/dL Albumin 2.4 L (3.5-5.0) g/dL Microbiology - Last 24 Hours (Table) 11/03/22 21:12 Blood Culture - Final Blood Assessment and Plan Assessment: Right upper lobe community-acquired cavitating pneumonia, small pulmonary abscesses Leukocytosis secondary to the above Acute renal failure, vancomycin-induced COPD Infrarenal abdominal aortic aneurysm, 2.9 cm Elevated LFTs Hypertension Ongoing nicotine dependence, 2 pack per day Generalized weakness, debility Plan: Continue on current medication regime ,monitoring and symptomatic treatment. Nephrology consulted regarding worsening renal function.Close mo nitoring of renal function with repeat labs ordered for a.m. Repeat blood cultures in progress. Antibiotics/PICC line as per ID. Maintain aggressive pulmonary toileting with nebulized bronchodilators. Smoking cessation reinforced. Case management arranging IV antibiotics with home care. Patient was anxious for discharge, threatening AMA. Plan of care discussed with both patient and daughter jalen at bedside. Patient is agreeable to stay, requesting to see his dog-discussed with nursing. Discharge planning in progress. The impression and plan of care has been dictated as directed. : I performed a history and examination of this patient, discussed the same with the dictator. I agree with the dictator's note ,documented as a scribe. Any additional findings or plans will be noted.
[2022-11-09] MEDS: IBUPROFEN 400 MG TAB PO PRN (15:51)
--- NOTE | 2022-11-09 22:15 | P.PN ---
Subjective Progress Note Date: 11/09/22 Principal diagnosis: pneumonia patient is a 71-year-old male with a past medical history significant for hypertension presenting to the hospital on 11/03/2022 for evaluation of fever cough and shortness of breath , patient did have a CT concerning for evidence of cavitating pneumonia and possible abscess, sputum has been negative blood cultures with gram-positive resembling Streptococcus Kenneth evaluation that is 11/09/2022, patient denies having any fever or any ch ills, the patient is breathing slightly comfortably. Denies having any chest pain he did have a cough and is being of some purulent sputum no nausea no vomiting no abdominal pain no diarrhea Objective - Vital Signs Vital signs: Vital Signs Temp 97.6 F 11/09/22 08:00 Pulse 72 11/09/22 08:00 Resp 20 11/09/22 08:00 BP 122/66 11/09/22 08:00 Pulse Ox 94 L 11/09/22 08:00 FiO2 21 11/08/22 07:40 Intake & Output 11/08/22 11/09/22 11/09/22 18:59 06:59 18:59 Other: Voiding Method Toilet Toilet Urinal Urinal # Voids 3 1 # Bowel Movements 1 1 - Exam GENERAL DESCRIPTION: An elderly male lying in bed in no distress RESPIRATORY SYSTEM: Unlabored breathing , decreased breath sounds at bases HEART: S1 S2 regular rate and rhythm , ABDOMEN: Soft , no tenderness EXTREMITIES: No edema feet - Labs CBC & Chem 7: 11/09/22 08:19 11/09/22 08:19 Labs: Abnormal Lab Results - Last 24 Hours (Table) 11/08/22 11/08/22 11/09/22 Range/Units 05:54 05:54 08:19 WBC 14.5 H (3.8-10.6) k/uL RBC 3.97 L (4.30-5.90) m/uL Hgb 11.8 L (13.0-17.5) gm/dL Hct 38.1 L (39.0-53.0) % MCHC 30.9 L (31.0-37.0) g/dL Plt Count 559 H (150-450) k/uL Neutrophils # 12.5 H (1.3-7.7) k/uL Lymphocytes # (1.0-4.8) k/uL Chloride (98-107) mmol/L Carbon Dioxide (22-30) mmol/L Creatinine 2.04 H 3.39 H (0.66-1.25) mg/dL Glucose 111 H (74-99) mg/dL Calcium 8.0 L (8.4-10.2) mg/dL C-Reactive Protein (<1.0) mg/dL Total Protein (6.3-8.2) g/dL Albumin (3.5-5.0) g/dL 11/09/22 11/09/22 Range/Units 08:19 08:19 WBC 14.6 H (3.8-10.6) k/uL RBC 4.03 L (4.30-5.90) m/uL Hgb 11.7 L (13.0-17.5) gm/dL Hct 38.3 L (39.0-53.0) % MCHC 30.5 L (31.0-37.0) g/dL Plt Count 540 H (150-450) k/uL Neutrophils # 12.6 H (1.3-7.7) k/uL Lymphocytes # 0.9 L (1.0-4.8) k/uL Chloride 111 H (98-107) mmol/L Carbon Dioxide 21 L (22-30) mmol/L Creatinine 3.42 H (0.66-1.25) mg/dL Glucose (74-99) mg/dL Calcium 7.7 L (8.4-10.2) mg/dL C-Reactive Protein 13.2 H (<1.0) mg/dL Total Protein 5.7 L (6.3-8.2) g/dL Albumin 2.4 L (3.5-5.0) g/dL Microbiology - Last 24 Hours (Table) 11/03/22 21:12 Blood Culture - Final Blood Assessment and Plan (1) Pneumonia Current Visit: Yes Status: Acute Code(s): J18.9 - PNEUMONIA, UNSPECIFIED ORGANISM SNOMED Code(s): 396503784 (2) Leukocytosis Current Visit: Yes Status: Acute Code(s): D72.829 - ELEVATED WHITE BLOOD KRISTIAN L COUNT, UNSPECIFIED SNOMED Code(s): 365795611 (3) Lung abscess Current Visit: Yes Status: Acute Code(s): J85.2 - ABSCESS OF LUNG WITHOUT PNEUMONIA SNOMED Code(s): 29664216 Plan: 1patient presented to hospital with fever increasing shortness of breath and cough in this patient with evidence of right middle and upper lobe pneumonia with evidence of cavitation and possible abscess that has been treated medically patient did have a blood cultures coming back positive gram-positive cocci in chains likely Streptococcus, ID sensitivity still pending on the positive blood culture sputum has been negative for any resistant pathogen 2-we will switch antibiotic therapy to Unasyn 3 g every 6 hours, the patient will need PICC line and outpatient IV antibiotic therapy Time with Patient: Less than 30
[2022-11-10] MEDS: SODIUM CHLORIDE 0.9% 1,000 ML IV SCH ×3 (06:28→23:38)
[2022-11-10 07:12] LABS: African American GFR (CKD) 16 (>60 ml/min/1.73 sqM); Anion Gap 10 mmol/L; Blood Urea Nitrogen 16 mg/dL (9-20); Calcium 7.8 mg/dL (8.4-10.2); Carbon Dioxide 19 mmol/L (22-30); Chloride 112 mmol/L (98-107); Glucose 108 mg/dL (74-99); Non-African American GFR(CKD) 14 (>60 ml/min/1.73 sqM); Potassium 3.8 mmol/L (3.5-5.1); Sodium 141 mmol/L (137-145)
[2022-11-10] MEDS: IPRATROPIUM-ALBUTEROL 3 ML NEB INHALATION SCH ×4 (08:02→19:57)
[2022-11-10] MEDS: NICOTINE 21MG/24HR PATCH TRANSDERM SCH (08:34)
[2022-11-10] MEDS: AMPICILLIN-SULBACTAM 3 GM in SODIUM CHLORIDE 0.9% 100 ML IVPB SCH ×2 (08:35→19:50)
[2022-11-10] MEDS: THIAMINE 100 MG TAB PO SCH (08:35)
--- NOTE | 2022-11-10 11:52 | P.NPCON ---
History of Present Illness - Reason for Consult acute renal failure - History of Present Illness Patient is a 71-year-old male with history of hypertension admitted to the hospital with complaints of shortness of breath and low-grade fever. Patient was also hypoxic. Patient is being treated for pneumonia. He did have a CT of the chest that showed patchy consolidation. Patient was maintained on IV van comycin which is now discontinued. Initial blood culture showed gram-positive cocci but final culture was negative. Vancomycin has now been discontinued. Level was 24.6 today Patient has been voiding Blood pressure was low with systolic in the 90s on 11/06/2022 and 11/04/2022 with a low reading as low as 86 mmHg for systolic. Patient also received IV contrast on initial admission for CT of the abdomen. Patient has been maintained on Motrin every 6 hours since admission. He is also maintained on IV fluids at 130 ML per hour Serum creatinine was 0.6 on initial admission and increased to 4.0 today. Patient states that she wants to go home and and is adamant that he will leave at 3 PM. Patient is advised that it is better for him to stay at least 1 more night given the worsening renal function. If at all he decides to leave he should follow-up in the office in 3-4 days with repeat labs. Review of Systems As per HPI Past Medical History Past Medical History: Hypertension History of Any Multi-Drug Resistant Organisms: None Reported Past Surgical History: No Surgical Hx Reported Past Anesthesia/Blood Transfusion Reactions: No Reported Reaction Past Psychological History: No Psychological Hx Reported Smoking Status: Current every day smoker Past Alcohol Use History: Rare Past Drug Use History: None Reported Medications and Allergies Home Medications Medication Instructions Recorded Confirmed Type amLODIPine [Norvasc] 5 mg PO BID 11/03/22 11/03/22 History Allergies Allergy/AdvReac Type Severity Reaction Status Date / Time No Known Allergies Allergy Verified 11/04/22 10:41 Physical Exam Vitals: Vital Signs Temp Pulse Pulse Resp BP BP Pulse Ox 11/10/22 11:42 84 11/10/22 11:32 80 11/10/22 08:09 88 11/10/22 08:02 81 99 11/10/22 07:29 97.6 F 72 17 153/74 93 L 11/10/22 03:10 98.1 F 64 15 113/61 97 11/09/22 22:00 80 11/09/22 21:53 78 11/09/22 19:40 98.2 F 89 17 120/66 96 11/09/22 16:37 76 11/09/22 16:28 76 11/09/22 14:00 97.7 F 91 16 142/71 96 11/09/22 12:51 80 11/09/22 12:38 76 Intake and Output 11/09/22 11/10/22 11/10/22 22:59 06:59 14:59 Output Total 350 Balance -350 Output: Urine 350 Other: Voiding Method Toilet Urinal # Voids 3 1 # Bowel Movements 2 Patient is awake, comfortable, no acute distress Examination of the heart S1 and S2 Examination of the lungs bilateral breath sounds are heard Abdomen is soft nontender Examination of lower extremities shows no edema [employer] exam grossly intact Results - Lab Results Most recent lab results Calcium 7.8 mg/dL (8.4-10.2) L 11/10/22 06:20 Magnesium 1.8 mg/dL 11/08/22 05:54 11/09/22 08:19 11/10/22 06:20 Assessment and Plan Assessment: 1. Acute kidney injury nonoliguric, Ischemic ATN and possible component of nephrotoxicity from vancomycin and IV contrast. Patient also had IV contrast for CAT scan on 11/03/2022 Check UA. DC Motrin and continue IV fluids. Check repeat vancomycin level today. 2. Right lung pneumonia maintained on antibiotics. Cavitation and possible abscess formation noted on CT 3. Gram-positive bacteremia initially with it final blood cultures being negative 4. History of hypertension with low blood pressure is currently 5. Metabolic acidosis secondary to renal failure, non-gap Plan: Continue with IV fluids Repeat random vancomycin level DC Motrin Check bladder scan rule out urine retention Patient is advised to stay at least 1 more night however he is adamant that he will leave today. Patient is advised to follow-up as outpatient in 3-4 days with repeat labs. He is advised to continue to avoid use of all kinds of NSAIDs. Hold blood pressure meds for systolic blood pressure less than 1 20 mmHg. Thank you for the consultation. We will continue to follow the patient with you during his hospitalization.
--- NOTE | 2022-11-10 12:56 | P.PN ---
Subjective Progress Note Date: 11/10/22 I am seeing this patient in new consultation today 11/04/2022 for right upper and middle lobe cavitating pneumonia. Patient is a 71-year-old white male with known past medical history of hypertension. He is also a 2 pack per day smoker. On my interview, the patient states that his daughter normally handles all this, and to ask her. He is unsure of his own medical history, but denies any history of lung disease. The patient has been reportedly experiencing shortness of breath with a productive cough and yellow sputum production for approximately one month. He does have associated right-sided chest pain especially with inspiration and cough. He has been more fatigued lately. He denies hemoptysis or recent unintentional weight loss. He is currently sitting up in bed, on room air, in no acute distress. Chest CTA on arrival shows no evidence of pulmonary embolism. It does show patchy consolidation throughout the right upper and middle lobes with regions of cavitation likely representing pneumonia with small pulmonary abscesses. There was also reactive right hilar lymph, a trace right p leural effusion, and mild COPD-like changes. CT of the abdomen pelvis showed no acute abdominal process, there was an infrarenal abdominal aortic aneurysm measuring up to 2.9 cm. CBC on arrival shows leukocytosis with a WBC count of 21, hemoglobin 13.7, hematocrit 42.6, platelets 434. CMP shows a sodium 133, potassium 4.3, chloride 97, serum CO2 23, BUN 21, creatinine 1.02, glucose 124. LFTs were elevated including an AST of 256, ALT 139, ALP of 207. Troponin negative 1. NT proBNP level. Negative for influenza, RSV, COVID-19. Patient is being empirically covered on a combination of Zosyn and clindamycin. He is febrile with a T-max of 100.2F. Vital signs are stable. On today's evaluation of 62,023, the patient is resting comfortably in bed and the patient is covered with triple antibiotics for an extensive right upper lobe pneumonia with cavitation and development of micro-abscesses. The white cell count is still elevated. The patient's pro-calcitonin level is still pending for now. Meanwhile, the most recent white cell count from yesterday was 23.5 and a hemoglobin is at 12. No chest pain. No hemoptysis. Legionella urine antigen has been negative. The patient has no other complaints otherwise for now. He is covered with a combination of clindamycin, vancomycin and Zosyn. On 11/06/2022, clinically stable and the patient has some limited improvement of the chest x-ray findings with improvement elevation of the right upper lobe on today's chest x-ray. Remains on triple antibiotic coverage. The patient's pro- calcitonin level is at 0.24. Creatinine is at 0.7. Remains on room air oxygen. 11/07/2022, the patient's chest x-ray showing some improved aeration in the right lung. There may be some central cavitation forming. As such, ongoing continuous antibiotic treatment and IV form is recommended. The patient is quite weak and debilitated and he may benefit from rehab the time of discharge. For that reason, it kept in the hospital for IV antibiotic administration. The list on the 15.3 with a hemoglobin of 12.4., The vancomycin levels of 18.7. For cultures are negative thus far. The patient is seen today 11/08/2022 in follow-up on the regular medical floor. He is sitting up in a chair at the bedside. Awake and alert in no acute distr ess. Breathing quite a bit better today compared to yesterday. Still not quite back to his baseline. Chest x-ray is showing slight improvement in the infiltrates of the right upper and middle lobes. He is maintaining good O2 saturations in the 90s on room air. He's been afebrile. Blood cultures reveal no growth. Sputum culture revealed no growth. Creatinine 2.04. TSH 2.52. Initial pro-calcitonin was 0.24. He is continued on vancomycin, clindamycin and Zosyn. The patient is seen today 11/09/2022 in follow-up on the regular medical floor. He sitting up at the bedside. Awake and alert in no acute distress. Blood culture was revealing gram-positive cocci in chains. Sputum culture revealed no growth. White count 14.6. Hemoglobin 11.7. Platelet count 540,000. Sodium 141. Potassium 4.0. Bicarb 21. BUN 17. Creatinine 3.42. His antibiotics have been switched to Unasyn. NicoDerm patches in place. Remains on bronchodilators. The patient is seen today 11/10/2022 in follow-up on the regular medical floor. He is currently resting in bed. Awake and alert in no acute distress. He is on DuoNeb inhalations. He is on antibiotics in the form of Unasyn. NicoDerm patch remains in place. 0.9 normal saline at 130 ML's per hour. Blood culture positive for gram-positive cocci in chains. Follow-up blood culture negative. Sodium 141. Potassium 3.8. Bicarb 19. BUN 16. Creatinine 4.07. Random vancomycin level 26.6. Nephrology is on the case. He remains on Unasyn. The plan is for outpatient IV antibiotics once PICC line placed. Objective - Vital Signs Vital signs: Vital Signs Temp 97.6 F 11/10/22 07:29 Pulse 84 11/10/22 11:42 Resp 17 11/10/22 07:29 BP 153/74 11/10/22 07:29 Pulse Ox 99 11/10/22 08:02 FiO2 21 11/08/22 07:40 Intake & Output 11/09/22 11/10/22 11/10/22 18:59 06:59 18:59 Output Total 567 Balance -567 Weight 77.111 kg Output: Urine 550 Post Void Residual 17 Other: Voiding Method Toilet Toilet Urinal Urinal # Voids 3 1 # Bowel Movements 2 1 - Exam GENERAL EXAM: Alert, 71-year-old male, on room air, comfortable in no apparent distress. HEAD: Normocephalic. EYES: Normal reaction of pupils, equal size. NOSE: Clear with pink turbinates. THROAT: No erythema or exudates. NECK: No masses, no JVD. CHEST: No chest wall deformity. LUNGS: Equal air entry with few scattered rhonchi more so on the right lung. CVS: S1 and S2 normal with no audible murmur, regular rhythm. ABDOMEN: No hepatosplenomegaly, normal bowel sounds, no guarding or rigidity. SPINE: No scoliosis or deformity SKIN: No rashes CENTRAL NERVOUS SYSTEM: No focal deficits, tone is normal in all 4 extremities. EXTREMITIES: There is no peripheral edema. No clubbing, no cyanosis. Peripheral pulses are intact. - Labs CBC & Chem 7: 11/09/22 08:19 11/10/22 06:20 Labs: Abnormal Lab Results - Last 24 Hours (Table) 11/09/22 11/10/22 Range/Units 08:19 06:20 Chloride 112 H (98-107) mmol/L Carbon Dioxide 19 L (22-30) mmol/L Creatinine 4.07 H (0.66-1.25) mg/dL Glucose 108 H (74-99) mg/dL Calcium 7.8 L (8.4-10.2) mg/dL Procalcitonin 0.28 H ng/mL Microbiology - Last 24 Hours (Table) 11/03/22 21:12 Blood Culture - Final Blood Assessment and Plan Assessment: Right upper lobe community acquired cavitating pneumonia. Chest CT shows patchy consolidation throughout the right upper and middle lobes with regions of cavitation likely representing pneumonia with small pulmonary abscesses. Leukocytosis secondary to above Suspected COPD, mild COPD-like changes were seen on chest CTA Infrarenal abdominal aortic aneurysm measuring up to 2.9 cm Hypertension Elevated LFTs, currently under evaluation Chronic nicotine dependence, current 2 pack per day smoker Generalized weakness and debility Plan: The patient was seen and evaluated Labs and medications reviewed Remains stable and on room air Nephrology has been consulted Motrin discontinued, vancomycin level ordered. Will need PICC line placement and outpatient antibiotics per ID service The patient is quite adamant about going home despite recommendations to stay I have personally seen and examined the patient, performed the documentation and the assessment and plan as written. Number of minutes spent on the visit: 10.
--- NOTE | 2022-11-10 13:52 | P.PN ---
Subjective Progress Note Date: 11/10/22 This is a 71-year-old gentleman admitted with acute right upper lobe community- acquired cavitating pneumonia. Chest x-rays continued to report prominent right upper lobe consolidation despite being on Zosyn, clindamycin, vancomycin. Vancomycin discontinued secondary to worsening renal function, creatinine 2. Clindamycin discontinued by pulmonary. Bronchoscopy recommended by pulmonary, patient declined. Maintaining O2 sats in the 90s on room air. Afebrile, WBC continues to improve, 14.5. Sputum and blood cultures reporting no growth. 11/09/2022 blood cultures reporting gram-positive cocci in chains , sputum culture reporting no growth . Worsening renal function, creatinine 3.42, vancomycin discontinued yesterday.evaluated by infectious disease, antibiotics adjusted, currently on Unasyn and recommending PICC line placement for outpatient IV antibiotic therapy. Afebrile, WBC 14.6. Electrolytes within normal limits. Continues on nebulized bronchodilators, maintaining O2 sats in the 90s on room air. 11/10/2022 Evaluated by nephrology with recommendations noted and appreciated. Afebrile. Repeat blood cultures reporting no growth at 24 hours Maintained on IV antibiotics of Unasyn, continues on nebulized bronchodilators, maintaining O2 sats in the high 90s on room air. Occasional nonproductive cough. Hypertensive, Norvasc resumed. Renal function continues to worsen, creatinine to 4.07, continues on IV fluid hydration. Patient was threatening AMA again today but is currently willing to stay; just wants to see his dog-which the floor is trying to facilitate. Objective - Vital Signs Vital signs: Vital Signs Temp 97.6 F 11/10/22 07:29 Pulse 84 11/10/22 11:42 Resp 17 11/10/22 07:29 BP 153/74 11/10/22 07:29 Pulse Ox 99 11/10/22 08:02 FiO2 21 11/08/22 07:40 Intake & Output 11/09/22 11/10/22 11/10/22 18:59 06:59 18:59 Output Total 350 Balance -350 Weight 77.111 kg Output: Urine 350 Other: Voiding Method Toilet Toilet Urinal Urinal # Voids 3 1 # Bowel Movements 2 - Exam PHYSICAL EXAM: VITAL SIGNS: [As above] GENERAL: Alert and oriented 3, Sitting up at bedside, no acute distress HEENT: Normocephalic, Conjunctivae normal. eyes normal. NECK: Supple, No JVD. CARDIOVASCULAR: S1, S2 regular.. No murmur RESPIRATION: Nonlabored, occasional scattered rhonchi with bilateral bases diminished. ABDOMEN: Soft, nontender . No guarding. no masses palpable. +BS. LEGS: No edema. no swelling, no calf tenderness. NERVOUS SYSTEM: Cranial N 2-12 grossly normal.No focal deficits.Strength and sensation grossly intact. Skin: Warm and dry, no rash Microbiology 11/08/22 22:21 Blood Blood Culture - Preliminary 11/03/22 21:12 Blood Blood Culture - Final 11/04/22 09:44 Sputum Gram Stain - Final 11/04/22 09:44 Sputum Sputum Culture - Final 11/04/22 09:44 Sputum Legionella Culture - Preliminary 11/03/22 20:55 Blood Blood Culture Gram Stain - Preliminary 11/03/22 20:55 Blood Blood Culture - Preliminary - Labs CBC & Chem 7: 11/09/22 08:19 11/10/22 06:20 Labs: Abnormal Lab Results - Last 24 Hours (Table) 11/09/22 11/10/22 Range/Units 08:19 06:20 Chloride 112 H (98-107) mmol/L Carbon Dioxide 19 L (22-30) mmol/L Creatinine 4.07 H (0.66-1.25) mg/dL Glucose 108 H (74-99) mg/dL Calcium 7.8 L (8.4-10.2) mg/dL Procalcitonin 0.28 H ng/mL Microbiology - Last 24 Hours (Table) 11/03/22 21:12 Blood Culture - Final Blood Assessment and Plan Assessment: Right upper lobe community-acquired cavitating pneumonia, small pulmonary abscesses Leukocytosis secondary to the above Acute renal failure COPD Infrarenal abdominal aortic aneurysm, 2.9 cm Elevated LFTs Hypertension Ongoing nicotine dependence, 2 pack per day Generalized weakness, debility Plan: Continue on current medication regime ,monitoring and symptomatic treatment. Maintain IV fluids ,close monitoring of renal function with repeat labs ordered for a.m. Repeat blood cultures in progress. Antibiotics/PICC line as per ID. Continue aggressive pulmonary toileting with nebulized bronchodilators. Smoking cessation reinforced. Patient is agreeable to stay, requesting to see his dog-discussed with nursing. The impression and plan of care has been dictated as directed. : I performed a history and examination of this patient, discussed the same with the dictator. I agree with the dictator's note ,documented as a scribe. Any additional findings or plans will be noted.
--- NOTE | 2022-11-10 14:52 | P.PN ---
Subjective Progress Note Date: 11/10/22 Principal diagnosis: pneumonia patient is a 71-year-old male with a past medical history significant for hypertension presenting to the hospital on 11/03/2022 for evaluation of fever cough and shortness of breath , patient did have a CT concerning for evidence of cavitating pneumonia and possible abscess, sputum has been negative blood cultures with gram-positive resembling Streptococcus Kenneth evaluation that is 11/10/2022, patient remains to be afebrile, the patie nt is breathing slightly comfortably and is currently on room air, the patient denies having any chest pain he did have a cough and is being of some purulent sputum no nausea no vomiting no abdominal pain no diarrhea Objective - Vital Signs Vital signs: Vital Signs Temp 97.6 F 11/10/22 07:29 Pulse 88 11/10/22 08:09 Resp 17 11/10/22 07:29 BP 153/74 11/10/22 07:29 Pulse Ox 99 11/10/22 08:02 FiO2 21 11/08/22 07:40 Intake & Output 11/09/22 11/10/22 11/10/22 18:59 06:59 18:59 Weight 77.111 kg Other: Voiding Method Toilet Toilet Urinal Urinal # Voids 3 1 # Bowel Movements 2 - Exam GENERAL DESCRIPTION: An elderly male lying in bed in no distress RESPIRATORY SYSTEM: Unlabored breathing , decreased breath sounds at bases HEART: S1 S2 regular rate and rhythm , ABDOMEN: Soft , no tenderness EXTREMITIES: No edema feet - Labs CBC & Chem 7: 11/09/22 08:19 11/10/22 06:20 Labs: Abnormal Lab Results - Last 24 Hours (Table) 11/09/22 11/10/22 Range/Units 08:19 06:20 Chloride 112 H (98-107) mmol/L Carbon Dioxide 19 L (22-30) mmol/L Creatinine 4.07 H (0.66-1.25) mg/dL Glucose 108 H (74-99) mg/dL Calcium 7.8 L (8.4-10.2) mg/dL Procalcitonin 0.28 H ng/mL Microbiology - Last 24 Hours (Table) 11/03/22 21:12 Blood Culture - Final Blood Assessment and Plan (1) Pneumonia Current Visit: Yes Status: Acute Code(s): J18.9 - PNEUMONIA, UNSPECIFIED ORGANISM SNOMED Code(s): 935156289 (2) Leukocytosis Current Visit: Yes Status: Acute Code(s): D72.829 - ELEVATED WHITE BLOOD CELL COUNT, UNSPECIFIED SNOMED Code(s): 928859765 (3) Lung abscess Current Visit: Yes Status: Acute Code(s): J85.2 - ABSCESS OF LUNG WITHOUT PNEUMONIA SNOMED Code(s): 81114814 Plan: 1patient presented to hospital with fever increasing shortness of breath and cough in this patient with evidence of right middle and upper lobe pneumonia with evidence of cavitation and possible abscess that has been treated medically patient did have a blood cultures coming back positive gram-positive cocci in chains likely Streptococcus, ID sensitivity still pending on the positive blood culture sputum has been negative for any resistant pathogen 2-patient did have worsening of his kidney function for which nephrology has been consulted 3-patient to continue with Unasyn he will need a PICC line for outpatient IV antibiotic therapy prescriptions provided to the gearcase assembler Time with Patient: Less than 30
[2022-11-10 15:12] LABS: Appearance,Urine Clear (Clear); Bilirubin,Urine Negative (Negative); Blood,Urine Negative (Negative); Color,Urine Light Yellow; Glucose,Urine (UA) Negative (Negative); Ketones,Urine Negative (Negative); Leukocyte Esterase,Urine Negative (Negative); Nitrite,Urine Negative (Negative); Protein,Urine Negative (Negative); Specific Gravity,Urine 1.005 (1.001-1.035); Urobilinogen,Urine <2.0 mg/dL (<2.0)
[2022-11-10] MEDS: amLODIPine 5 MG TAB PO SCH ×2 (16:08→19:49)
[2022-11-10] MEDS: LORazepam 0.5 MG TAB PO PRN (20:36)
[2022-11-10] MEDS ORDERED: ACETAMINOPHEN TAB 325 MG TAB PO PRN (20:57)
[2022-11-10] MEDS ORDERED: Acetaminophen-Codeine 300-30mg TAB PO PRN (20:57)
[2022-11-11] MEDS: SODIUM CHLORIDE 0.9% 1,000 ML IV SCH ×2 (06:45→13:45)
[2022-11-11 07:21] LABS: Basophils # (A) 0.1 k/uL (0-0.2); Basophils % (A) 0 %; Eosinophils # (A) 0.2 k/uL (0-0.7); Eosinophils % (A) 1 %; HCT 39.4 % (39.0-53.0); HGB 12.1 gm/dL (13.0-17.5); Hypochromasia Marked; Lymphocytes % (A) 8 %; MCH 29.5 pg (25.0-35.0); MCHC 30.7 g/dL (31.0-37.0); MCV 95.8 fL (80.0-100.0); Mean Platelet Volume 7.1; Monocytes # (A) 0.5 k/uL (0-1.0); Monocytes % (A) 5 %; Neutrophils # (A) 10.4 k/uL (1.3-7.7); Neutrophils % (A) 85 %; Platelet Count 577 k/uL (150-450); RBC 4.12 m/uL (4.30-5.90); RDW 14.1 % (11.5-15.5); WBC 12.2 k/uL (3.8-10.6)
[2022-11-11] MEDS: NICOTINE 21MG/24HR PATCH TRANSDERM SCH (07:53)
[2022-11-11] MEDS: AMPICILLIN-SULBACTAM 3 GM in SODIUM CHLORIDE 0.9% 100 ML IVPB SCH ×2 (07:53→19:40)
[2022-11-11] MEDS: THIAMINE 100 MG TAB PO SCH (07:53)
[2022-11-11] MEDS: amLODIPine 5 MG TAB PO SCH ×2 (07:53→19:40)
[2022-11-11 08:12] LABS: African American GFR (CKD) 13 (>60 ml/min/1.73 sqM); Anion Gap 14 mmol/L; Blood Urea Nitrogen 18 mg/dL (9-20); Calcium 7.9 mg/dL (8.4-10.2); Carbon Dioxide 19 mmol/L (22-30); Chloride 110 mmol/L (98-107); Glucose 112 mg/dL (74-99); Non-African American GFR(CKD) 12 (>60 ml/min/1.73 sqM); Potassium 4.6 mmol/L (3.5-5.1); Sodium 143 mmol/L (137-145)
[2022-11-11] MEDS: IPRATROPIUM-ALBUTEROL 3 ML NEB INHALATION SCH ×4 (08:27→21:16)
--- NOTE | 2022-11-11 11:37 | P.PN ---
Subjective Progress Note Date: 11/11/22 I am seeing this patient in new consultation today 11/04/2022 for right upper and middle lobe cavitating pneumonia. Patient is a 71-year-old white male with known past medical history of hypertension. He is also a 2 pack per day smoker. On my interview, the patient states that his daughter normally handles all this, and to ask her. He is unsure of his own medical history, but denies any history of lung disease. The patient has been reportedly experiencing shortness of breath with a productive cough and yellow sputum production for approximately one month. He does have associated right-sided chest pain especially with inspiration and cough. He has been more fatigued lately. He denies hemoptysis or recent unintentional weight loss. He is currently sitting up in bed, on room air, in no acute distress. Chest CTA on arrival shows no evidence of pulmonary embolism. It does show patchy consolidation throughout the right upper and middle lobes with regions of cavitation likely representing pneumonia with small pulmonary abscesses. There was also reactive right hilar lymph, a trace right p leural effusion, and mild COPD-like changes. CT of the abdomen pelvis showed no acute abdominal process, there was an infrarenal abdominal aortic aneurysm measuring up to 2.9 cm. CBC on arrival shows leukocytosis with a WBC count of 21, hemoglobin 13.7, hematocrit 42.6, platelets 434. CMP shows a sodium 133, potassium 4.3, chloride 97, serum CO2 23, BUN 21, creatinine 1.02, glucose 124. LFTs were elevated including an AST of 256, ALT 139, ALP of 207. Troponin negative 1. NT proBNP level. Negative for influenza, RSV, COVID-19. Patient is being empirically covered on a combination of Zosyn and clindamycin. He is febrile with a T-max of 100.2F. Vital signs are stable. On today's evaluation of 62,023, the patient is resting comfortably in bed and the patient is covered with triple antibiotics for an extensive right upper lobe pneumonia with cavitation and development of micro-abscesses. The white cell count is still elevated. The patient's pro-calcitonin level is still pending for now. Meanwhile, the most recent white cell count from yesterday was 23.5 and a hemoglobin is at 12. No chest pain. No hemoptysis. Legionella urine antigen has been negative. The patient has no other complaints otherwise for now. He is covered with a combination of clindamycin, vancomycin and Zosyn. On 11/06/2022, clinically stable and the patient has some limited improvement of the chest x-ray findings with improvement elevation of the right upper lobe on today's chest x-ray. Remains on triple antibiotic coverage. The patient's pro- calcitonin level is at 0.24. Creatinine is at 0.7. Remains on room air oxygen. 11/07/2022, the patient's chest x-ray showing some improved aeration in the right lung. There may be some central cavitation forming. As such, ongoing continuous antibiotic treatment and IV form is recommended. The patient is quite weak and debilitated and he may benefit from rehab the time of discharge. For that reason, it kept in the hospital for IV antibiotic administration. The list on the 15.3 with a hemoglobin of 12.4., The vancomycin levels of 18.7. For cultures are negative thus far. The patient is seen today 11/08/2022 in follow-up on the regular medical floor. He is sitting up in a chair at the bedside. Awake and alert in no acute distr ess. Breathing quite a bit better today compared to yesterday. Still not quite back to his baseline. Chest x-ray is showing slight improvement in the infiltrates of the right upper and middle lobes. He is maintaining good O2 saturations in the 90s on room air. He's been afebrile. Blood cultures reveal no growth. Sputum culture revealed no growth. Creatinine 2.04. TSH 2.52. Initial pro-calcitonin was 0.24. He is continued on vancomycin, clindamycin and Zosyn. The patient is seen today 11/09/2022 in follow-up on the regular medical floor. He sitting up at the bedside. Awake and alert in no acute distress. Blood culture was revealing gram-positive cocci in chains. Sputum culture revealed no growth. White count 14.6. Hemoglobin 11.7. Platelet count 540,000. Sodium 141. Potassium 4.0. Bicarb 21. BUN 17. Creatinine 3.42. His antibiotics have been switched to Unasyn. NicoDerm patches in place. Remains on bronchodilators. The patient is seen today 11/10/2022 in follow-up on the regular medical floor. He is currently resting in bed. Awake and alert in no acute distress. He is on DuoNeb inhalations. He is on antibiotics in the form of Unasyn. NicoDerm patch remains in place. 0.9 normal saline at 130 ML's per hour. Blood culture positive for gram-positive cocci in chains. Follow-up blood culture negative. Sodium 141. Potassium 3.8. Bicarb 19. BUN 16. Creatinine 4.07. Random vancomycin level 26.6. Nephrology is on the case. He remains on Unasyn. The plan is for outpatient IV antibiotics once PICC line placed. The patient is seen today 11/11/2022 in follow-up on the regular medical floor. He is up in a chair at the bedside. Awake and alert in no acute distress. Maintaining good O2 saturations in the 90s on room air. He's been afebrile. White count 12.2. Hemoglobin 12.1. Sodium 143. Potassium 4.6. Bicarb 19. BUN 18. Creatinine 4.71. Urinalysis negative. Remains on normal saline at 130 ML's per hour. He continues on antibiotics in the form of Unasyn. Remains on bronchodilators. NicoDerm patch in place. Objective - Vital Signs Vital signs: Vital Signs Temp 97.4 F L 11/11/22 08:00 Pulse 111 H 11/11/22 08:40 Resp 20 11/11/22 08:00 BP 153/99 11/11/22 08:00 Pulse Ox 95 11/11/22 08:29 FiO2 21 11/08/22 07:40 Intake & Output 11/10/22 11/11/22 11/11/22 18:59 06:59 18:59 Intake Total 118 Output Total 567 Balance -449 Intake: Oral 118 Output: Urine 550 Post Void Residual 17 Other: Voiding Method Toilet Toilet Urinal Urinal # Voids 2 # Bowel Movements 1 - Exam GENERAL EXAM: Alert, 71-year-old male, on room air, sitting up in a chair, comfortable in no apparent distress. HEAD: Normocephalic. EYES: Normal reaction of pupils, equal size. NOSE: Clear with pink turbinates. THROAT: No erythema or exudates. NECK: No masses, no JVD. CHEST: No chest wall deformity. LUNGS: Equal air entry with few scattered rhonchi more so on the right lung. CVS: S1 and S2 normal with no audible murmur, regular rhythm. ABDOMEN: No hepatosplenomegaly, normal bowel sounds, no guarding or rigidity. SPINE: No scoliosis or deformity SKIN: No rashes CENTRAL NERVOUS SYSTEM: No focal deficits, tone is normal in all 4 extremities. EXTREMITIES: There is no peripheral edema. No clubbing, no cyanosis. Peripheral pulses are intact. - Labs CBC & Chem 7: 11/11/22 06:40 11/11/22 06:40 Labs: Abnormal Lab Results - Last 24 Hours (Table) 11/11/22 11/11/22 Range/Units 06:40 06:40 WBC 12.2 H (3.8-10.6) k/uL RBC 4.12 L (4.30-5.90) m/uL Hgb 12.1 L (13.0-17.5) gm/dL MCHC 30.7 L (31.0-37.0) g/dL Plt Count 577 H (150-450) k/uL Neutrophils # 10.4 H (1.3-7.7) k/uL Chloride 110 H (98-107) mmol/L Carbon Dioxide 19 L (22-30) mmol/L Creatinine 4.71 H (0.66-1.25) mg/dL Glucose 112 H (74-99) mg/dL Calcium 7.9 L (8.4-10.2) mg/dL Microbiology - Last 24 Hours (Table) 11/08/22 22:21 Blood Culture - Preliminary Blood Assessment and Plan Assessment: Right upper lobe community acquired cavitating pneumonia. Chest CT shows patchy consolidation throughout the right upper and middle lobes with regions of cavitation likely representing pneumonia with small pulmonary abscesses. Currently on Unasyn Leukocytosis secondary to above, improving Acute kidney injury, suspect related to vancomycin, NSAIDs, current creatinine 4.71 Suspected COPD, mild COPD-like changes were seen on chest CTA Infrarenal abdominal aortic aneurysm measuring up to 2.9 cm Hypertension Elevated LFTs, improved Chronic nicotine dependence, current 2 pack per day smoker Generalized weakness and debility Plan: The patient was seen and evaluated Labs and medications reviewed Remains stable and on room air Nephrology is following Mid line placement today Continued on Unasyn We will continue to follow I have personally seen and examined the patient, performed the documentation and the assessment and plan as written. Number of minutes spent on the visit: 10.
--- NOTE | 2022-11-11 12:57 | US ---
EXAMINATION TYPE: US kidneys/renal and bladder DATE OF EXAM: 11/11/2022 COMPARISON: NONE CLINICAL INDICATION: Male, 71 years old with history of elevated creatine; abnormal labs, no symptoms Technique: Multiple sonographic images of the kidneys and bladder are obtained. FINDINGS: EXAM MEASUREMENTS: Right Kidney: 13.0 x 4.5 x 6.1 cm Left Kidney: 10.1 x 4.7 x 5.3 cm Right Kidney: No hydronephrosis or masses seen Left Kidney: No hydronephrosis or masses seen Bladder: Inadequately assessed; voided prior to exam IMPRESSION: No hydronephrosis. Unable to adequately assess the bladder as the patient voided prior to the exam.
--- NOTE | 2022-11-11 13:48 | P.PN ---
Subjective Progress Note Date: 11/11/22 This is a 71-year-old gentleman admitted with acute right upper lobe community- acquired cavitating pneumonia. Chest x-rays continued to report prominent right upper lobe consolidation despite being on Zosyn, clindamycin, vancomycin. Vancomycin discontinued secondary to worsening renal function, creatinine 2. Clindamycin discontinued by pulmonary. Bronchoscopy recommended by pulmonary, patient declined. Maintaining O2 sats in the 90s on room air. Afebrile, WBC continues to improve, 14.5. Sputum and blood cultures reporting no growth. 11/09/2022 blood cultures reporting gram-positive cocci in chains , sputum culture reporting no growth . Worsening renal function, creatinine 3.42, vancomycin discontinued yesterday.evaluated by infectious disease, antibiotics adjusted, currently on Unasyn and recommending PICC line placement for outpatient IV antibiotic therapy. Afebrile, WBC 14.6. Electrolytes within normal limits. Continues on nebulized bronchodilators, maintaining O2 sats in the 90s on room air. 11/10/2022 Evaluated by nephrology with recommendations noted and appreciated. Afebrile. Repeat blood cultures reporting no growth at 24 hours Maintained on IV antibiotics of Unasyn, continues on nebulized bronchodilators, maintaining O2 sats in the high 90s on room air. Occasional nonproductive cough. Hypertensive, Norvasc resumed. Renal function continues to worsen, creatinine to 4.07, continues on IV fluid hydration. Patient was threatening AMA again today but is currently willing to stay; just wants to see his dog-which the floor is trying to facilitate. 11/11/2022 Maintained on IV fluid hydration, antibiotics of Unasyn. Renal function worsening, creatinine 4.71, UA negative. Renal ultrasound pending. O2 sats in the high 90s on 2 L nasal cannula. Midline placed. He received Tylenol 3 for her back pain, improved. Denies chest pain, palpitations or shortness of breath. Daughter updated on the phone per PCP Dr. Stoll. Objective - Vital Signs Vital signs: Vital Signs Temp 97.4 F L 11/11/22 08:00 Pulse 100 11/11/22 12:20 Resp 20 11/11/22 08:00 BP 153/99 11/11/22 08:00 Pulse Ox 95 11/11/22 08:29 FiO2 21 11/08/22 07:40 Intake & Output 11/10/22 11/11/22 11/11/22 18:59 06:59 18:59 Intake Total 118 Output Total 567 Balance -449 Intake: Oral 118 Output: Urine 550 Post Void Residual 17 Other: Voiding Method Toilet Toilet Urinal Urinal # Voids 2 # Bowel Movements 1 - Exam PHYSICAL EXAM: VITAL SIGNS: [As above] GENERAL: Alert and oriented 3, Sitting up in chair, no acute distress HEENT: Normocephalic, Conjunctivae normal. eyes normal. NECK: Supple, No JVD. CARDIOVASCULAR: S1, S2 regular.. No murmur RESPIRATION: Nonlabored, occasional scattered rhonchi with bilateral bases diminished. ABDOMEN: Soft, nontender . No guarding. no masses palpable. +BS. LEGS: No edema. no swelling, no calf tenderness. NERVOUS SYSTEM: Cranial N 2-12 grossly normal.No focal deficits.Strength and sensation grossly intact. Skin: Warm and dry, no rash - Labs CBC & Chem 7: 11/11/22 06:40 11/11/22 06:40 Labs: Abnormal Lab Results - Last 24 Hours (Table) 11/11/22 11/11/22 Range/Units 06:40 06:40 WBC 12.2 H (3.8-10.6) k/uL RBC 4.12 L (4.30-5.90) m/uL Hgb 12.1 L (13.0-17.5) gm/dL MCHC 30.7 L (31.0-37.0) g/dL Plt Count 577 H (150-450) k/uL Neutrophils # 10.4 H (1.3-7.7) k/uL Chloride 110 H (98-107) mmol/L Carbon Dioxide 19 L (22-30) mmol/L Creatinine 4.71 H (0.66-1.25) mg/dL Glucose 112 H (74-99) mg/dL Calcium 7.9 L (8.4-10.2) mg/dL Microbiology - Last 24 Hours (Table) 11/10/22 11:39 Gram Stain - Preliminary Sputum 11/08/22 22:21 Blood Culture - Preliminary Blood Assessment and Plan Assessment: Right upper lobe community-acquired cavitating pneumonia, small pulmonary abscesses Leukocytosis secondary to the above Acute renal failure COPD Infrarenal abdominal aortic aneurysm, 2.9 cm Elevated LFTs Hypertension Ongoing nicotine dependence, 2 pack per day Generalized weakness, debility Plan: Continue on current medication regime ,monitoring and symptomatic treatment. Maintain IV fluids ,close monitoring of renal function with repeat labs ordered for a.m. renal ultrasound pending. Repeat blood cultures in progress. Antibiotics as per ID. Continue aggressive pulmonary toileting with nebulized bronchodilators. Smoking cessation reinforced. Discharge planning in progress pending improvement in renal function. The impression and plan of care has been dictated as directed. : I performed a history and examination of this patient, discussed the same with the dictator. I agree with the dictator's note ,documented as a scribe. Any additional findings or plans will be noted.
--- NOTE | 2022-11-11 18:58 | P.PN ---
Subjective Patient is seen for f/u for acute kidney injury associated with hypotension, NSAIDs and possible element of vancomycin toxicity. Serum creatinine continues to worsen. It is 4.7 today. Currently maintained on IVF nad has had good UOP. CT Abdomen on admission did not show any hydronephrosis. Discussed with family including daughter over the phone. Objective - Vital Signs Vital signs: Vital Signs Temp 98.1 F 11/11/22 14:00 Pulse 87 11/11/22 16:59 Resp 18 11/11/22 14:00 BP 138/74 11/11/22 14:00 Pulse Ox 90 L 11/11/22 14:00 FiO2 21 11/08/22 07:40 Intake & Output 11/10/22 11/11/22 11/11/22 18:59 06:59 18:59 Intake Total 118 118 Output Total 567 Balance -449 118 Intake: Oral 118 118 Output: Urine 550 Post Void Residual 17 Other: Voiding Method Toilet Toilet Urinal Urinal # Voids 2 # Bowel Movements 1 - Exam Patient is awake, comfortable ALert and oriented x 3 Lungs are clear CVS S1 and S2 Extremities show edema 1+ bilaterally TEACHER ASSISTANT exam is grossly intact. - Labs CBC & Chem 7: 11/11/22 06:40 11/11/22 06:40 Labs: Abnormal Lab Results - Last 24 Hours (Table) 11/11/22 11/11/22 Range/Units 06:40 06:40 WBC 12.2 H (3.8-10.6) k/uL RBC 4.12 L (4.30-5.90) m/uL Hgb 12.1 L (13.0-17.5) gm/dL MCHC 30.7 L (31.0-37.0) g/dL Plt Count 577 H (150-450) k/uL Neutrophils # 10.4 H (1.3-7.7) k/uL Chloride 110 H (98-107) mmol/L Carbon Dioxide 19 L (22-30) mmol/L Creatinine 4.71 H (0.66-1.25) mg/dL Glucose 112 H (74-99) mg/dL Calcium 7.9 L (8.4-10.2) mg/dL Microbiology - Last 24 Hours (Table) 11/10/22 11:39 Gram Stain - Preliminary Sputum 06/05/23 22:21 Blood Culture - Preliminary Blood Assessment and Plan Assessment: 1. Acute kidney injury nonoliguric, Ischemic ATN and possible component of nephrotoxicity from vancomycin and IV contrast. Patient also had IV contrast for CAT scan on 11/03/2022. No hydronephrosis on CT abdomen. UA is benign. Motrin discontinued. Continue IV fluids. 2. Right lung pneumonia maintained on antibiotics. Cavitation and possible abscess formation noted on CT 3. Gram-positive bacteremia initially with it final blood cultures being negative 4. History of hypertension with low blood pressure, improved now. 5. Metabolic acidosis secondary to renal failure, non-gap Plan: Continue with IV fluids Repeat labs in am Avoid hypotension.
[2022-11-11] MEDS: LORazepam 0.5 MG TAB PO PRN (20:45)
--- NOTE | 2022-11-11 22:53 | P.PN ---
Subjective Progress Note Date: 11/11/22 Principal diagnosis: pneumonia patient is a 71-year-old male with a past medical history significant for hypertension presenting to the hospital on 11/03/2022 for evaluation of fever cough and shortness of breath , patient did have a CT concerning for evidence of cavitating pneumonia and possible abscess, sputum has been negative blood cultures with gram-positive resembling Streptococcus Kenneth evaluation that is 11/11/2022, patient continues to be afebrile, the pat ient is breathing slightly comfortably on room air, the patient denies having any chest pain he did have a cough which is less productive now, no nausea no vomiting no abdominal pain no diarrhea Objective - Vital Signs Vital signs: Vital Signs Temp 97.4 F L 11/11/22 08:00 Pulse 111 H 11/11/22 08:40 Resp 20 11/11/22 08:00 BP 153/99 11/11/22 08:00 Pulse Ox 95 11/11/22 08:29 FiO2 21 11/08/22 07:40 Intake & Output 11/10/22 11/11/22 11/11/22 18:59 06:59 18:59 Intake Total 118 Output Total 567 Balance -449 Intake: Oral 118 Output: Urine 550 Post Void Residual 17 Other: Voiding Method Toilet Toilet Urinal Urinal # Voids 2 # Bowel Movements 1 - Exam GENERAL DESCRIPTION: An elderly male lying in bed in no distress RESPIRATORY SYSTEM: Unlabored breathing , decreased breath sounds at bases HEART: S1 S2 regular rate and rhythm , ABDOMEN: Soft , no tenderness EXTREMITIES: No edema feet - Labs CBC & Chem 7: 11/11/22 06:40 11/11/22 06:40 Labs: Abnormal Lab Results - Last 24 Hours (Table) 11/11/22 11/11/22 Range/Units 06:40 06:40 WBC 12.2 H (3.8-10.6) k/uL RBC 4.12 L (4.30-5.90) m/uL Hgb 12.1 L (13.0-17.5) gm/dL MCHC 30.7 L (31.0-37.0) g/dL Plt Count 577 H (150-450) k/uL Neutrophils # 10.4 H (1.3-7.7) k/uL Chloride 110 H (98-107) mmol/L Carbon Dioxide 19 L (22-30) mmol/L Creatinine 4.71 H (0.66-1.25) mg/dL Glucose 112 H (74-99) mg/dL Calcium 7.9 L (8.4-10.2) mg/dL Microbiology - Last 24 Hours (Table) 11/08/22 22:21 Blood Culture - Preliminary Blood Assessment and Plan (1) Pneumonia Current Visit: Yes Status: Acute Code(s): J18.9 - PNEUMONIA, UNSPECIFIED ORGANISM SNOMED Code(s): 125356824 (2) Leukocytosis Current Visit: Yes Status: Acute Code(s): D72.829 - ELEVATED WHITE BLOOD CELL COUNT, UNSPECIFIED SNOMED Code(s): 951891672 (3) Lung abscess Current Visit: Yes Status: Acute Code(s): J85.2 - ABSCESS OF LUNG WITHOUT PNEUMONIA SNOMED Code(s): 10584582 Plan: 1patient presented to hospital with fever increasing shortness of breath and cough in this patient with evidence of right middle and upper lobe pneumonia with evidence of cavitation and possible abscess that has been treated medically patient did have a blood cultures coming back positive gram-positive cocci in chains likely Streptococcus, ID sensitivity still pending on the positive blood culture sputum has been negative for any resistant pathogen 2-patient did have worsening of his kidney function for which nephrology is following the patient closely 3-patient to continue with Unasyn, midline has been ordered for outpatient IV antibiotics Family the bedside questions were answered Time with Patient: Less than 30
[2022-11-12] MEDS: SODIUM CHLORIDE 0.9% 1,000 ML IV SCH ×3 (02:46→13:06)
[2022-11-12 07:08] LABS: African American GFR (CKD) 12 (>60 ml/min/1.73 sqM); Anion Gap 10 mmol/L; Blood Urea Nitrogen 23 mg/dL (9-20); Calcium 7.9 mg/dL (8.4-10.2); Carbon Dioxide 19 mmol/L (22-30); Chloride 113 mmol/L (98-107); Glucose 112 mg/dL (74-99); Non-African American GFR(CKD) 11 (>60 ml/min/1.73 sqM); Potassium 4.3 mmol/L (3.5-5.1); Sodium 142 mmol/L (137-145)
[2022-11-12 08:20] VITALS: BP 154/90; RESP 18; TEMP 97.5
[2022-11-12] MEDS: IPRATROPIUM-ALBUTEROL 3 ML NEB INHALATION SCH ×2 (08:53→11:34)
[2022-11-12] MEDS: NICOTINE 21MG/24HR PATCH TRANSDERM SCH (09:11)
[2022-11-12] MEDS: amLODIPine 5 MG TAB PO SCH (09:11)
[2022-11-12] MEDS: THIAMINE 100 MG TAB PO SCH (09:11)
[2022-11-12] MEDS: AMPICILLIN-SULBACTAM 3 GM in SODIUM CHLORIDE 0.9% 100 ML IVPB SCH (09:12)
--- NOTE | 2022-11-12 11:00 | P.PN ---
Subjective Progress Note Date: 11/12/22 This is a 71-year-old gentleman admitted with acute right upper lobe community- acquired cavitating pneumonia. Chest x-rays continued to report prominent right upper lobe consolidation despite being on Zosyn, clindamycin, vancomycin. Vancomycin discontinued secondary to worsening renal function, creatinine 2. Clindamycin discontinued by pulmonary. Bronchoscopy recommended by pulmonary, patient declined. Maintaining O2 sats in the 90s on room air. Afebrile, WBC continues to improve, 14.5. Sputum and blood cultures reporting no growth. 11/09/2022 blood cultures reporting gram-positive cocci in chains , sputum culture reporting no growth . Worsening renal function, creatinine 3.42, vancomycin discontinued yesterday.evaluated by infectious disease, antibiotics adjusted, currently on Unasyn and recommending PICC line placement for outpatient IV antibiotic therapy. Afebrile, WBC 14.6. Electrolytes within normal limits. Continues on nebulized bronchodilators, maintaining O2 sats in the 90s on room air. 11/10/2022 Evaluated by nephrology with recommendations noted and appreciated. Afebrile. Repeat blood cultures reporting no growth at 24 hours Maintained on IV antibiotics of Unasyn, continues on nebulized bronchodilators, maintaining O2 sats in the high 90s on room air. Occasional nonproductive cough. Hypertensive, Norvasc resumed. Renal function continues to worsen, creatinine to 4.07, continues on IV fluid hydration. Patient was threatening AMA again today but is currently willing to stay; just wants to see his dog-which the floor is trying to facilitate. 11/11/2022 Maintained on IV fluid hydration, antibiotics of Unasyn. Renal function worsening, creatinine 4.71, UA negative. Renal ultrasound pending. O2 sats in the high 90s on 2 L nasal cannula. Midline placed. He received Tylenol 3 for her back pain, improved. Denies chest pain, palpitations or shortness of breath. Daughter updated on the phone per PCP Dr. Stoll. 11/12/2022 continues on IV fluid hydration, creatinine increased to 4.96. Renal ultrasound completed yesterday reporting no hydronephrosis of either kidney. Afebrile, maintaining O2 sats in the 90s on 2 L nasal cannula. Denies chest pain, palpitations or shortness of breath. Objective - Vital Signs Vital signs: Vital Signs Temp 97.5 F L 06/09/23 08:00 Pulse 99 11/12/22 08:00 Resp 18 11/12/22 08:00 BP 154/90 11/12/22 08:00 Pulse Ox 95 11/12/22 08:54 FiO2 21 11/08/22 07:40 Intake & Output 11/11/22 11/12/22 11/12/22 18:59 06:59 18:59 Intake Total 118 Balance 118 Intake: Oral 118 Other: Voiding Method Toilet Urinal Urinal # Voids 2 - Exam PHYSICAL EXAM: Unchanged- VITAL SIGNS: [As above] GENERAL: Alert and oriented 3, Sitting up in chair, no acute distress HEENT: Normocephalic, Conjunctivae normal. eyes normal. NECK: Supple, No JVD. CARDIOVASCULAR: S1, S2 regular.No murmur RESPIRATION: Nonlabored, occasional scattered rhonchi with bilateral bases diminished. ABDOMEN: Soft, nontender . No guarding. no masses palpable. +BS. LEGS: No edema. no swelling, no calf tenderness. NERVOUS SYSTEM: Cranial N 2-12 grossly normal.No focal deficits.Strength and sensation grossly intact. Skin: Warm and dry, no rash. Microbiology 11/10/22 11:39 Sputum Gram Stain - Final 11/10/22 11:39 Sputum Sputum Culture - Final Lisa albicans 11/08/22 22:21 Blood Blood Culture - Preliminary 11/03/22 21:12 Blood Blood Culture - Final 11/04/22 09:44 Sputum Gram Stain - Final 11/04/22 09:44 Sputum Sputum Culture - Final 11/04/22 09:44 Sputum Legionella Culture - Preliminary 11/03/22 20:55 Blood Blood Culture Gram Stain - Preliminary 11/03/22 20:55 Blood Blood Culture - Preliminary - Labs CBC & Chem 7: 11/11/22 06:40 11/12/22 06:17 Labs: Abnormal Lab Results - Last 24 Hours (Table) 11/12/22 Range/Units 06:17 Chloride 113 H (98-107) mmol/L Carbon Dioxide 19 L (22-30) mmol/L BUN 23 H (9-20) mg/dL Creatinine 4.96 H (0.66-1.25) mg/dL Glucose 112 H (74-99) mg/dL Calcium 7.9 L (8.4-10.2) mg/dL Microbiology - Last 24 Hours (Table) 11/10/22 11:39 Gram Stain - Final Sputum Sputum Culture - Final Lisa albicans 11/08/22 22:21 Blood Culture - Preliminary Blood Assessment and Plan Assessment: Right upper lobe community-acquired cavitating pneumonia, small pulmonary abscesses Leukocytosis secondary to the above Acute renal failure COPD Infrarenal abdominal aortic aneurysm, 2.9 cm Elevated LFTs Hypertension Ongoing nicotine dependence, 2 pack per day Generalized weakness, debility Plan: Continue on current medication regime ,monitoring and symptomatic treatment. Maintain IV fluids ,close monitoring of renal function with repeat labs ordered for a.m. Antibiotics as per ID. maintain aggressive pulmonary toileting with nebulized bronchodilators. Smoking cessation reinforced, patient declines nicotine patch. Discharge planning in progress pending improvement in renal function. The impression and plan of care has been dictated as directed. : I performed a history and examination of this patient, discussed the same with the dictator. I agree with the dictator's note ,documented as a scribe. Any additional findings or plans will be noted.
[2022-11-12 11:38] VITALS: PULSE 92
--- NOTE | 2022-11-12 11:53 | P.DS ---
Providers Date of admission: 11/03/22 20:48 Expected date of discharge: 11/12/22 Attending physician: Nadeem Prajapati Consults: 11/03/22 20:48 Consult Physician Urgent Consulting Provider: Aniceto Hernandez Consult Reason/Comments: Pulmonary abscess Do you want consulting provider notified?: Yes 11/08/22 12:23 Consult Physician Routine Consulting Provider: Christopher Figueredo Consult Reason/Comments: cavitat. pneumonia Do you want consulting provider notified?: Yes 11/09/22 13:01 Consult Physician Routine Consulting Provider: Carolyn Car Consult Reason/Comments: JUAN CARLOS Do you want consulting provider notified?: Yes Primary care physician: [facility] Course: Final Diagnoses: Right upper lobe community-acquired cavitating pneumonia, small pulmonary abscesses Leukocytosis secondary to the above Acute renal failure COPD Infrarenal abdominal aortic aneurysm, 2.9 cm Elevated LFTs Hypertension Ongoing nicotine dependence, 2 pack per day Generalized weakness, debility Hospital course:Progress Note Date: 11/12/22 This is a 71-year-old gentleman admitted with acute right upper lobe community- acquired cavitating pneumonia. Chest x-rays continued to report prominent right upper lobe consolidation despite being on Zosyn, clindamycin, vancomycin. Vancomycin discontinued secondary to worsening renal function, creatinine 2. Clindamycin discontinued by pulmonary. Bronchoscopy recommended by pulmonary, patient declined. Maintaining O2 sats in the 90s on room air. Afebrile, WBC continues to improve, 14.5. Sputum and blood cultures reporting no growth. 11/09/2022 blood cultures reporting gram-positive cocci in chains , sputum culture reporting no growth . Worsening renal function, creatinine 3.42, vancomycin discontinued yesterday.evaluated by infectious disease, antibiotics adjusted, currently on Unasyn and recommending PICC line placement for outpatient IV antibiotic therapy. Afebrile, WBC 14.6. Electrolytes within normal limits. Continues on nebulized bronchodilators, maintaining O2 sats in the 90s on room air. 11/10/2022 Evaluated by nephrology with recommendations noted and appreciated. Afebrile. Repeat blood cultures reporting no growth at 24 hours Maintained on IV antibiotics of Unasyn, continues on nebulized bronchodilators, maintaining O2 sats in the high 90s on room air. Occasional nonproductive cough. Hypertensive, Norvasc resumed. Renal function continues to worsen, creatinine to 4.07, continues on IV fluid hydration. Patient was threatening AMA again today but is currently willing to stay; just wants to see his dog-which the floor is trying to facilitate. 11/11/2022 Maintained on IV fluid hydration, antibiotics of Unasyn. Renal function worsening, creatinine 4.71, UA negative. Renal ultrasound pending. O2 sats in the high 90s on 2 L nasal cannula. Midline placed. He received Tylenol 3 for her back pain, improved. Denies chest pain, palpitations or shortness of breath. Daughter updated on the phone per PCP Dr. Stoll. 11/12/2022 continues on IV fluid hydration, creatinine increased to 4.96. Renal ultrasound completed yesterday reporting no hydronephrosis of either kidney. Afebrile, maintaining O2 sats in the 90s on 2 L nasal cannula. Denies chest pain, palpitations or shortness of breath. Reports good urine output, no nausea vomiting or diarrhea. No abdominal pain. Afebrile. O2 sat on room air after ambulation pending. Denies chest pain, palpitations or shortness of breath. Denies lightheadedness, dizziness or focal deficits. Cleared by nephrology and ID for discharge. Close monitoring of renal function with repeat labs ordered for Tuesday. Patient will be discharged home today in a stable condition with guarded prognosis. IV antibiotics as per ID. The impression and plan of care has been dictated as directed. : I performed a history and examination of this patient, discussed the same with the dictator. I agree with the dictator's note ,documented as a scribe. Any additional findings or plans will be noted. Patient Condition at Discharge: Stable Plan - Discharge Summary Discharge Rx Participant: Yes New Discharge Prescriptions: New Nicotine 21Mg/24Hr Patch [Habitrol] 1 patch TRANSDERM DAILY patch Acetaminophen Tab [Tylenol] 650 mg PO Q4HR PRN tab PRN Reason: Mild Pain (Scale 1 To 3) Albuterol Inhaler [Ventolin Hfa Inhaler] 2 puff INHALATION QID #8 gm Thiamine [Vitamin B-1] 100 mg PO DAILY tab Ampicillin-Sulbactam [Unasyn 3 gm vial] 3 gm IVPB Q12HR 14 Days each Continue amLODIPine [Norvasc] 5 mg PO BID Discharge Medication List amLODIPine [Norvasc] 5 mg PO BID 11/03/22 [History] Acetaminophen Tab [Tylenol] 650 mg PO Q4HR PRN tab 11/12/22 [Rx] Albuterol Inhaler [Ventolin Hfa Inhaler] 2 puff INHALATION QID #8 gm 11/12/22 [Rx] Ampicillin-Sulbactam [Unasyn 3 gm vial] 3 gm IVPB Q12HR 14 Days each 11/12/22 [Rx] Nicotine 21Mg/24Hr Patch [Habitrol] 1 patch TRANSDERM DAILY patch 11/12/22 [Rx] Thiamine [Vitamin B-1] 100 mg PO DAILY tab 11/12/22 [Rx] Follow up Appointment(s)/Referral(s): Carolyn Car MD [STAFF PHYSICIAN] - 1 Week Nadeem Prajapati Jr, DO [Primary Care Provider] - 1-2 days [facility][1] [NON-STAFF] - 1-2 Days ([facility] will call to set up in home nursing and physical therapy visits. Nursing will call you to schedule your first visit to begin outpatient IV antibiotic teaching on: ) [facility], [REFERRING] - As Needed ([facility] will deliver supplies for outpatient IV antibiotics on: ) Ambulatory/Diagnostic Orders: Basic Metabolic Panel [LAB.AMB] Time Frame: 11/15/22, Location: None Selected Patient Instructions/Handouts: How to Stop Smoking (DC) Activity/Diet/Wound Care/Special Instructions: Per Dr. Figueredo: IV Unasyn 3gm every 12 hours for 2 weeks.
--- NOTE | 2022-11-12 12:09 | P.PN ---
Subjective Patient is seen for f/u for acute kidney injury associated with hypotension, NSAIDs and possible element of vancomycin toxicity. Serum creatinine increase only slightly from yesterday. It is 4.9 today. Currently maintained on IVF nad has had good UOP. CT Abdomen on admission did not show any hydronephrosis. Discussed with family including daughter over the phone. Objective - Vital Signs Vital signs: Vital Signs Temp 97.5 F L 11/12/22 08:00 Pulse 92 11/12/22 11:35 Resp 18 11/12/22 08:00 BP 154/90 11/12/22 08:00 Pulse Ox 95 11/12/22 08:54 FiO2 21 11/08/22 07:40 Intake & Output 11/11/22 11/12/22 11/12/22 18:59 06:59 18:59 Intake Total 118 Balance 118 Intake: Oral 118 Other: Voiding Method Toilet Urinal Urinal # Voids 2 - Exam Patient is awake, comfortable ALert and oriented x 3 Lungs are clear CVS S1 and S2 Extremities show edema 1+ bilaterally NAIL SPECIALIST exam is grossly intact. - Labs CBC & Chem 7: 11/11/22 06:40 11/12/22 06:17 Labs: Abnormal Lab Results - Last 24 Hours (Table) 11/12/22 Range/Units 06:17 Chloride 113 H (98-107) mmol/L Carbon Dioxide 19 L (22-30) mmol/L BUN 23 H (9-20) mg/dL Creatinine 4.96 H (0.66-1.25) mg/dL Glucose 112 H (74-99) mg/dL Calcium 7.9 L (8.4-10.2) mg/dL Microbiology - Last 24 Hours (Table) 11/10/22 11:39 Gram Stain - Final Sputum Sputum Culture - Final Lisa albicans 11/08/22 22:21 Blood Culture - Preliminary Blood Assessment and Plan Assessment: 1. Acute kidney injury nonoliguric, Ischemic ATN and possible component of n ephrotoxicity from vancomycin and IV contrast. Patient also had IV contrast for CAT scan on 11/03/2022. No hydronephrosis on CT abdomen. UA is benign. Motrin discontinued. Continue IV fluids. 2. Right lung pneumonia maintained on antibiotics. Cavitation and possible abscess formation noted on CT 3. Gram-positive bacteremia initially with it final blood cultures being negative 4. History of hypertension with low blood pressure, improved now. 5. Metabolic acidosis secondary to renal failure, non-gap Plan: Okay to discharge patient Repeat labs in 2 days and follow-up in the office in 3-4 days post discharge Continue to avoid NSAIDs.
[2022-11-12] MEDS ORDERED: AMPICILLIN-SULBACTAM 3 GM in SODIUM CHLORIDE 0.9% 100 ML IVPB ONE (13:00)
[2022-11-12] MEDS ORDERED: CALCIUM CARBONATE 500 MG CHEWABLE PO PRN (13:04)
--- NOTE | 2022-11-12 13:11 | P.PN ---
Subjective Progress Note Date: 11/12/22 Principal diagnosis: pneumonia patient is a 71-year-old male with a past medical history significant for hypertension presenting to the hospital on 11/03/2022 for evaluation of fever cough and shortness of breath , patient did have a CT concerning for evidence of cavitating pneumonia and possible abscess, sputum has been negative blood cultures with gram-positive resembling Streptococcus Kenneth evaluation that is 11/12/2022, patient remains to be afebrile, the patie nt is breathing comfortably on 2 L nasal cannula oxygen, the patient denies having any chest pain he did have a cough with occasional sputum production, no nausea no vomiting no abdominal pain no diarrhea Objective - Vital Signs Vital signs: Vital Signs Temp 97.5 F L 11/12/22 08:00 Pulse 99 11/12/22 08:00 Resp 18 11/12/22 08:00 BP 154/90 11/12/22 08:00 Pulse Ox 95 11/12/22 08:54 FiO2 21 11/08/22 07:40 Intake & Output 11/11/22 11/12/22 11/12/22 18:59 06:59 18:59 Intake Total 118 Balance 118 Intake: Oral 118 Other: Voiding Method Toilet Urinal Urinal # Voids 2 - Exam GENERAL DESCRIPTION: An elderly male lying in bed in no distress RESPIRATORY SYSTEM: Unlabored breathing , decreased breath sounds at bases HEART: S1 S2 regular rate and rhythm , ABDOMEN: Soft , no tenderness EXTREMITIES: No edema feet - Labs CBC & Chem 7: 11/11/22 06:40 11/12/22 06:17 Labs: Abnormal Lab Results - Last 24 Hours (Table) 11/12/22 Range/Units 06:17 Chloride 113 H (98-107) mmol/L Carbon Dioxide 19 L (22-30) mmol/L BUN 23 H (9-20) mg/dL Creatinine 4.96 H (0.66-1.25) mg/dL Glucose 112 H (74-99) mg/dL Calcium 7.9 L (8.4-10.2) mg/dL Microbiology - Last 24 Hours (Table) 11/10/22 11:39 Gram Stain - Final Sputum Sputum Culture - Final Lisa albicans 11/08/22 22:21 Blood Culture - Preliminary Blood Assessment and Plan (1) Pneumonia Current Visit: Yes Status: Acute Code(s): J18.9 - PNEUMONIA, UNSPECIFIED ORGANISM SNOMED Code(s): 985186160 (2) Leukocytosis Current Visit: Yes Status: Acute Code(s): D72.829 - ELEVATED WHITE BLOOD CELL COUNT, UNSPECIFIED SNOMED Code(s): 397727358 (3) Lung abscess Current Visit: Yes Status: Acute Code(s): J85.2 - ABSCESS OF LUNG WITHOUT PNEUMONIA SNOMED Code(s): 13933277 Plan: 1patient presented to hospital with fever increasing shortness of breath and cough in this patient with evidence of right middle and upper lobe pneumonia with evidence of cavitation and possible abscess that has been treated medically patient did have a blood cultures coming back positive gram-positive cocci in chains likely Streptococcus, ID sensitivity still pending on the positive blood culture sputum has been negative for any resistant pathogen 2-patient did have worsening of his kidney function for which nephrology is following the patient closely 3-patient Unasyn dose has been adjusted to daily by pharmacy because of worsening of his kidney function, updated outpatient prescription has been provided to the showcase trimmer however Unasyn does need to be adjusted up if his kidney function improved/ Time with Patient: Less than 30
[2022-11-12] MEDS ORDERED: AMPICILLIN-SULBACTAM 3 GM in SODIUM CHLORIDE 0.9% 100 ML IVPB SCH (20:00)
== END 2022-11-12 14:29 | disposition home health service (06) | DRG 871 ==
LOC: EC 17:20 → 5NMEDONC 20:48 → 6NMEDSUR 23:21
PROVIDERS: ADMIT Family Medicine; ATTEND Family Medicine
PROC: 05HA33Z Insertion of Infusion Device into Left Brachial Vein, Percutaneous Approach (ICD-10-PCS; principal; 2022-11-11 09:30)
DX: A41.9 Sepsis, unspecified organism (principal); J85.1 Abscess of lung with pneumonia; N17.0 Acute kidney failure with tubular necrosis; E87.20 Acidosis, unspecified; J44.0 Chronic obstructive pulmonary disease with (acute) lower respiratory infection; I95.9 Hypotension, unspecified; I71.43 Infrarenal abdominal aortic aneurysm, without rupture; I10 Essential (primary) hypertension; Z20.822 Contact with and (suspected) exposure to COVID-19; Z28.310 Unvaccinated for COVID-19; N14.19 Nephropathy induced by other drugs, medicaments and biological substances; T36.8X5A Adverse effect of other systemic antibiotics, initial encounter; B95.5 Unspecified streptococcus as the cause of diseases classified elsewhere; R09.02 Hypoxemia; R74.8 Abnormal levels of other serum enzymes; F17.210 Nicotine dependence, cigarettes, uncomplicated; M54.9 Dorsalgia, unspecified; Z79.899 Other long term (current) drug therapy; Z71.6 Tobacco abuse counseling; Y92.230 Patient room in hospital as the place of occurrence of the external cause
CPT/HCPCS: 36410; 36415; 71045; 71046; 71275; 74177; 76705; 76770; 76937; 80048; 80053; 80143; 80202; 81003; 82565; 83605; 83735; 83880; 84145; 84443; 84484; 85025; 85027; 85379; 85610; 85730; 86140; 87040; 87070; 87205; 87449; 87636; 93005; 94640; 94760; 96361; 96365; 96367; 99285

== ENCOUNTER → 2022-11-15 | Outpatient (CLI) | payer MEDICARE, OTHER ==
[2022-11-15 22:39] LABS: BUN/Creat Ratio 6.26 Ratio (12.00-20.00); Blood Urea Nitrogen 35.7 mg/dL (9.0-27.0); Calcium 8.7 mg/dL (8.7-10.3); Carbon Dioxide 21.5 mmol/L (21.6-31.8); Chloride 106 mmol/L (96-109); Glucose 86 mg/dL (70-110); Sodium 142 mmol/L (135-145)
[2022-11-15 23:16] LABS: HCT 38.8 % (39.6-50.0); HGB 11.9 d/dL (12.0-15.0); MCH 28.6 pg (27.0-32.0); MCHC 30.7 d/dL (32.0-37.0); MCV 93.3 FL (80.0-97.0); Mean Platelet Volume 9.1 FL (9.5-12.2); NRBC Per 100 WBC 0 X 10*3/uL (0.00-0.01); Platelet Count 436 X 10*3/uL (140-440); RBC 4.16 X 10*6/uL (4.40-5.60); RDW 15.6 % (11.5-14.5); WBC 13.28 X 10*3/uL (4.50-10.00)
== END | disposition home or self-care (01) ==
LOC: LABWHC1 10:55
PROVIDERS: ATTEND Nurse Practitioner
DX: J18.9 Pneumonia, unspecified organism (principal); N17.9 Acute kidney failure, unspecified
CPT/HCPCS: 36415; 80048; 85027